=== PATIENT | male | born 1990 | race Caucasian/White ===

== ENCOUNTER 2018-11-12 19:29 | Inpatient (IN) | payer SELFPAY ==
[2018-11-12] MEDS ORDERED: Ketorolac Tromethamine 30 MG/ML VIAL ONE (20:23)
[2018-11-12] MEDS ORDERED: Ondansetron PF 4 MG/2 ML Vial IVP PRN (22:36)
[2018-11-12] MEDS ORDERED: Ondansetron ODT 4 MG TAB SL PRN (22:36)
[2018-11-12] MEDS ORDERED: Morphine 2 MG/ML SYRINGE SLOW IVP PRN (22:37)
[2018-11-12] MEDS: Lactated Ringer's 1,000 ML IV SCH (23:05)
[2018-11-12] MEDS: metroNIDAZOLE 500 MG in Premix Bag 1 BAG IVPB SCH (23:06)
[2018-11-12] MEDS: Acetaminophen 1,000 MG in Premix Bag 1 BAG IVPB PRN (23:15)
[2018-11-12] MEDS: Ketorolac Tromethamine 30 MG/ML VIAL IVP PRN (23:15)
[2018-11-12 23:40] VITALS: BMI 38.1
[2018-11-13] MEDS: metroNIDAZOLE 500 MG in Premix Bag 1 BAG IVPB SCH (06:10)
[2018-11-13] MEDS: Acetaminophen 1,000 MG in Premix Bag 1 BAG IVPB PRN ×2 (09:04→17:22)
[2018-11-13] MEDS: Ketorolac Tromethamine 30 MG/ML VIAL IVP PRN ×2 (09:04→17:22)
[2018-11-13] MEDS: Lactated Ringer's 1,000 ML IV SCH (09:20)
[2018-11-13] MEDS ORDERED: Morphine 2 MG/ML SYRINGE SLOW IVP PRN (09:46)
[2018-11-13] MEDS: D5 1/2 NS w/20 mEq KCL 1,000 ML IV SCH ×2 (10:49→17:25)
[2018-11-13] MEDS: Piperacillin/Tazobactam 3.375 GM in Sodium Chloride 0.9% 100 ML IVPB SCH ×2 (10:51→17:25)
--- NOTE | 2018-11-13 11:53 | HP ---
CHIEF COMPLAINT: Suprapubic and left lower quadrant abdominal pain. HISTORY OF PRESENT ILLNESS: This is a 28-year-old male with a 4-day history of lower abdominal pain, nausea, vomiting, and constipation. He has had a previous episode of this in June of 2017, treated with IV antibiotics. PAST MEDICAL HISTORY: Cardiomegaly, diverticulosis, hypothyroidism, and hypertension. PAST SURGICAL HISTORY: He had a colonoscopy at age 16 for rectal bleeding due to a fissure. He is supposed to take levothyroxine, but he had not been taken it. ALLERGIES: NO KNOWN DRUG ALLERGIES. SOCIAL HISTORY: He is single. 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 No tobacco since October 09. Occasional alcohol. FAMILY HISTORY: Paternal cardiac problems. Father had a heart attack at 36. PHYSICAL EXAMINATION: VITAL SIGNS: Temperature 98.4, pulse 87, and blood pressure 127/81. GENERAL: Obese male, awake, alert, does not appear to be in any distress. HEENT: Unremarkable. LUNGS: Clear. HEART: Regular rate and rhythm. ABDOMEN: Obese, soft, tender in the left lower quadrant and suprapubic area. LABORATORY DATA: His white count is 12.8, H and H 16 and 46, and platelet count 235. Electrolytes are fine. Urinalysis fine. CT scan shows diverticulitis with a 1 x 4 cm thin area of fluid surrounding this inflammatory mass. No air was seen around this. It was too small to be aspirated by CT directed. ASSESSMENT: Acute diverticulitis with possible early perforation. PLAN: Admit. IV fluids, bowel rest, and IV antibiotics. Job ID: [id number]
[2018-11-13] MEDS: Ondansetron PF 4 MG/2 ML Vial IVP PRN (16:13)
[2018-11-13] MEDS: Morphine 4 MG/ML VIAL SLOW IVP PRN (20:32)
[2018-11-14] MEDS: Piperacillin/Tazobactam 3.375 GM in Sodium Chloride 0.9% 100 ML IVPB SCH ×5 (00:12→23:14)
[2018-11-14] MEDS: D5 1/2 NS w/20 mEq KCL 1,000 ML IV SCH ×3 (04:19→12:54)
[2018-11-14] MEDS: Acetaminophen 1,000 MG in Premix Bag 1 BAG IVPB PRN ×2 (08:47→20:45)
[2018-11-14] MEDS: Ondansetron PF 4 MG/2 ML Vial IVP PRN ×3 (08:48→23:14)
[2018-11-14] MEDS: Ketorolac Tromethamine 30 MG/ML VIAL IVP PRN ×2 (08:48→20:19)
--- NOTE | 2018-11-14 08:50 | PRG ---
DATE OF SERVICE: 11/14/2018 SUBJECTIVE: The patient reports that his pain is 8, but it is better. He is passing flatus. No nausea or vomiting. He is very hungry. He is tolerating ice chips fine. OBJECTIVE: VITAL SIGNS: His temperature is 99, pulse 90, blood pressure 122/77. GENERAL: He looks good, in no apparent distress. ABDOMEN: Soft, obese. He still is moderately tender in the suprapubic area. ASSESSMENT: Stable. PLAN: Clear liquid diet. Continue IV antibiotics. Job ID: [id number]
[2018-11-14] MEDS: Morphine 4 MG/ML VIAL SLOW IVP PRN ×2 (17:19→23:14)
[2018-11-15] MEDS: D5 1/2 NS w/20 mEq KCL 1,000 ML IV SCH ×3 (03:30→17:55)
[2018-11-15 05:24] LABS: #Eosinphils 0.2 thou/uL (0.0-0.7); #Lymphocytes 1.5 thou/uL (1.20-3.40); #Monocytes 0.9 thou/uL (0.11-0.59); #Neutrophils 7.8 thou/uL (1.40-6.50); %Basophils 0.2 % (0.0-1.0); %Eosinophils 2.2 % (0.0-10.0); %Lymphocytes 14.1 % (21.0-51.0); %Monocytes 8.4 % (0.0-10.0); %Neutrophils 75.2 % (42.0-75.0); Hemoglobin 13.6 g/dL (14.0-18.0); Mean Corpuscular HGB CONC 32.9 g/dL (32.0-36.0); Mean Corpuscular Hemoglobin 30.4 pg (27.0-31.0); Mean Corpuscular Volume 92.5 fL (78.0-98.0); Mean Platelet Volume 7.7 fL (7.4-10.4); Platelet Count 232 thou/uL (130-400); RBC Distribution Width 11.7 % (11.5-14.5); Red Blood Cell (RBC) Count 4.47 mill/uL (4.70-6.10); White Blood Cell (WBC) Count 10.3 thou/uL (4.8-10.8)
[2018-11-15] MEDS: Ketorolac Tromethamine 30 MG/ML VIAL IVP PRN ×3 (05:41→18:28)
[2018-11-15] MEDS: Piperacillin/Tazobactam 3.375 GM in Sodium Chloride 0.9% 100 ML IVPB SCH ×3 (05:41→17:12)
[2018-11-15] MEDS: Acetaminophen 1,000 MG in Premix Bag 1 BAG IVPB PRN ×3 (05:41→18:29)
--- NOTE | 2018-11-15 08:38 | CT ---
CT Abdomen Pelvis W Con: 11/15/2018 7:40 AM CLINICAL INFORMATION: COMPARISON: None. TECHNIQUE: Multiple contiguous axial images were obtained and a CT of the abdomen and pelvis with IV contrast. C oronal reformats were performed. FINDINGS: Lower Chest: within normal limits. Abdomen: Liver: within normal limits. Bile Ducts: Normal caliber. Gallbladder: No calcified gallstones. Normal caliber wall. Pancreas: within normal limits. Spleen: within normal limits. Adrenals: within normal limits. Kidneys: within normal limits. Pelvis: Reproductive Organs: No pelvic masses. Ureters: within normal limits. Bladder: within normal limits. Peritoneum: No free fluid is seen. Bowel: Inflammatory changes seen adjacent to the sigmoid colon consistent with acute diverticulitis. There is a small amount of extraluminal air immediately adjacent to the sigmoid colon which appears contained in a region measuring 2.4 cm in greatest dimension. There is a small fluid collection adjac ent to the sigmoid colon measuring 3.3 cm in greatest dimension. Normal small bowel and appendix. Mesentery and Retroperitoneum: No enlarged mesenteric or retroperitoneal lymph nodes. Vessels: Normal. Abdominal Wall: within normal limits. Bones: Within normal limits IMPRESSION: Diverticulitis with small contained extraluminal collection of air and a separate small fluid collect ion likely representing an abscess. The small fluid collection is not amenable to percutaneous drainage as it is inaccessible secondary to the overlying bowel and adjacent iliac vasculature.
--- NOTE | 2018-11-15 08:55 | PRG ---
DATE OF SERVICE: 11/15/2018 SUBJECTIVE: The patient attempted to drink clear liquids, but felt extreme nausea, so went back to n.p.o. Says his pain is about 6/10. OBJECTIVE: VITAL SIGNS: Temperature is 99.2, pulse 81, blood pressure 160/91. ABDOMEN: Soft, nondistended. He is glory hole tender in the suprapubic area, but it is less. LABORATORY DATA: His white count is 10, H and H are 13 and 41 platelet count 232. ASSESSMENT: Persistent diverticulitis with abscess. PLAN: Repeat CT to assess abscess. Job ID: [id number]
[2018-11-15] MEDS: Ondansetron PF 4 MG/2 ML Vial IVP PRN ×2 (11:03→17:13)
[2018-11-15] MEDS: Morphine 4 MG/ML VIAL SLOW IVP PRN ×3 (11:04→20:54)
[2018-11-15] MEDS ORDERED: Iopamidol 370 76% 100 ML VIAL ONE (14:43)
[2018-11-15] MEDS ORDERED: Acetaminophen 1,000 MG in Premix Bag 1 BAG IVPB PRN (22:35)
[2018-11-16] MEDS: Piperacillin/Tazobactam 3.375 GM in Sodium Chloride 0.9% 100 ML IVPB SCH ×3 (00:54→13:56)
[2018-11-16] MEDS: D5 1/2 NS w/20 mEq KCL 1,000 ML IV SCH ×2 (00:59→10:33)
[2018-11-16] MEDS: Ondansetron PF 4 MG/2 ML Vial IVP PRN (01:22)
[2018-11-16] MEDS: Ketorolac Tromethamine 30 MG/ML VIAL IVP PRN (03:37)
--- NOTE | 2018-11-16 05:51 | PRG ---
DATE OF SERVICE: 11/16/2018 The patient reports that at about 7:30 p.m., he had a large bowel movement. During that bowel movement, he experienced severe pain that continued to progress throughout his abdomen. His temperature went up to 102, pulse is 90, blood pressure 140/80, they were having a very difficult time controlling his pain. His pain is now more diffuse across the abdomen. PHYSICAL EXAMINATION: VITAL SIGNS: Temperature 102, pulse 90, blood pressure 148/80. GENERAL: He is awake, alert, lying still. ABDOMEN: Diffusely tender with peritonitis. ASSESSMENT: Ruptured diverticulitis. PLAN: Exploratory laparotomy, sigmoid colectomy with some type of ostomy, either colostomy or ileostomy. Job ID: [id number]
[2018-11-16] MEDS ORDERED: Meropenem 2 GM in Admixture Fee 1 EACH IVPB SCH (06:00)
[2018-11-16] MEDS ORDERED: Fentanyl 100 MCG/2 ML VIAL ONE ×3 (06:04→09:40)
[2018-11-16] MEDS ORDERED: Albuterol Sulfate HFA (OR ONLY) ONE (06:24)
[2018-11-16] MEDS ORDERED: Midazolam HCl 2 mg/2 ml Vial ONE (06:58)
[2018-11-16] MEDS: Meropenem 2 GM, Admixture Fee 1 EACH in Sodium Chloride 0.9% 100 ML IVPB SCH ×3 (07:20→21:26)
[2018-11-16] MEDS ORDERED: HYDROmorphone 2 MG/ML VIAL ONE ×2 (08:39→09:40)
[2018-11-16] MEDS ORDERED: hydrALAZINE 20 MG/ML VIAL SLOW IVP PRN (09:16)
[2018-11-16] MEDS ORDERED: Ondansetron PF 4 MG/2 ML Vial IVP PRN ×2 (09:16→09:54)
[2018-11-16] MEDS ORDERED: Promethazine HCl 25 MG/ML VIAL IM PRN ×3 (09:16→09:54)
[2018-11-16] MEDS ORDERED: Promethazine HCl 25 MG/ML VIAL SLOW IVP PRN (09:29)
[2018-11-16] MEDS ORDERED: HYDROmorphone 2 MG/ML VIAL SLOW IVP PRN (09:29)
[2018-11-16] MEDS ORDERED: Ondansetron HCl/PF 4 MG/2 ML Vial IVP PRN (09:29)
[2018-11-16] MEDS ORDERED: PACU-Morphine 4MG/ML VIAL SLOW IVP PRN (09:29)
[2018-11-16] MEDS ORDERED: Sodium Chloride 0.9% 1,000 ML IV SCH (09:30)
[2018-11-16] MEDS ORDERED: Dexamethasone 4 mg/ml Vial ONE (09:36)
[2018-11-16] MEDS ORDERED: Naloxone HCl 0.4 mg/ml Vial IV PRN (09:54)
[2018-11-16] MEDS ORDERED: diphenhydrAMINE 50 MG/ML VIAL IM/IV PRN (09:54)
[2018-11-16] MEDS ORDERED: diphenhydrAMINE 25 MG CAP PO PRN (09:54)
[2018-11-16] MEDS ORDERED: Zolpidem Tartrate 5 MG TAB PO PRN (09:54)
--- NOTE | 2018-11-16 10:28 | RAD ---
Exam: Chest one view HISTORY:Central line placement Comparison: None FINDINGS: Lines and tubes: Right-sided jugular venous catheter with the distal tip projecting over the right at rium/superior vena cava junction Cardiac silhouette: Normal Aorta: Unremarkable Pulmonary vessels: Normal Costophrenic angles: Clear LUNGS: Diminished lung volumes, likely due to a poor inspiratory effort. Pneumothorax: None Osseous abnormalities: None IMPRESSION: 1. Right-sided jugular venous catheter as above. 2. No pneumothorax.
[2018-11-16] MEDS ORDERED: D5 1/2 NS w/20 mEq KCL 1,000 ML ONE (10:54)
[2018-11-16] MEDS ORDERED: Promethazine HCl 25 MG/ML VIAL ONE (11:05)
--- NOTE | 2018-11-16 12:20 | OP ---
DATE OF PROCEDURE: 11/16/2018 PREOPERATIVE DIAGNOSIS: Perforated appendicitis with pelvic abscess, peritonitis. PROCEDURES PERFORMED: Exploratory laparotomy, rigid proctoscopy, sigmoid colectomy, diverting ileostomy, and central line placement. INDICATIONS: This is a 28-year-old male, who was admitted 4 days ago with the second episode of diverticulitis. He had a small contained abscess that was not amenable to percutaneous drainage. He is being treated with antibiotics and seemed to be getting better until last night when he had sudden onset of severe pelvic pain, which migrated generalized throughout his abdomen after trying to have a bowel movement. He developed fever. FINDINGS: He had rupture with generalized peritonitis. He had this deep pelvic abscess right on the peritoneal reflection. It appeared as though the disease though was the loop of sigmoid colon, which was down in his pelvis. DESCRIPTION OF PROCEDURE: After informed consent was obtained, the patient was taken to the operating room and given general endotracheal anesthesia. He was placed in the supine position. His abdomen was prepped and draped in usual fashion. A low midline incision was performed. Subcu was divided sharply. The fascia was incised with a 10 blade. The fascia further opened sharply. Retraction was achieved with a Bookwalter retractor. There was purulent peritoneal fluid in the pelvis, which was cultured. He had inflammatory mass down in his pelvis and this was able to be brought up. There was residual inflammation on the rectum at the peritoneal reflection from this abscess cavity. So, I was trying to look for signs where the abscess came from, whether it was started in the sigmoid or it started just at the peritoneal reflection. I did a rigid proctoscope at this point, and we looked inside under direct vision to 25 cm, inflated this loop of air, which was compressed with a Vanessa clamp. There was no air leak or evidence of the type of perforation at the rectum. There was no mucosal inflammation suggesting this was the source of the perforation. For that reason, we elected to just remove the portion of the sigmoid colon that was all inflamed. Distally, it was divided in healthy colon tissue with the NETTIE, proximally was divided in healthy colon tissue with the NETTIE, and then the mesentery divided utilizing the LigaSure. A primary end-to-end hand-sewn anastomosis was performed with interrupted 3-0 Vicryl suture. The mesentery closed with interrupted [id number] of 3-0 Vicryl. Hemostasis was assured. The abdomen was thoroughly irrigated with saline. A drain was placed on the left side and placed into the deep pelvis, where the abscess cavity had been. Then, an ileostomy was created. A circular skin incision on the right side was performed. It was excised with electrocautery down to the fascia. The fascia was incised in a cruciate manner with a cautery. This was dilated with 4 fingers. The ileum was found and a loop that was found that would easily go through this. It was divided with the NETTIE and part of the mesentery, but both ends of the ileum were brought through the fascia to make closure easier. The proximal end was then sutured to the fascia with interrupted 3-0 Vicryl suture. Then, the abdominal wall was closed with a running looped #1 PDS with interrupted #1 Prolene [id number]. The subcu was thoroughly irrigated. Then, subcu was closed with interrupted 3-0 Vicryl and then skin francisco. A Prevena wound VAC system was inserted on the wound to remove fluid as he is morbidly obese. Then, the ileostomy was matured. The staple line excised and it was matured with interrupted 3-0 Vicryl sutures circumferentially. A wafer and then bag applied. Then, a central line was placed in his right internal jugular vein. The skin was then prepped with Hibiclens. The introducer needle inserted with good backflow of venous blood, J-wire threaded easily. The skin was incised with an 11 blade and the dilator was used. The pre-flushed triple-lumen catheter inserted over the wire. The wire was removed. Each of the ports aspirated, good backflow of venous blood and flushed with saline, sutured in place with interrupted 3-0 silk suture. Sterile bandage applied. The patient tolerated the procedure well, transferred to Recovery in good condition. Sponge and needle count verified correct x2. Job ID: [id number]
[2018-11-16] MEDS ORDERED: Bupivacaine HCl 0.5%/Epinephrine 1:200,000/PF 30 ml Vial ONE (12:43)
[2018-11-16] MEDS: Acetaminophen 1,000 MG in Premix Bag 1 BAG IVPB SCH ×3 (14:00→23:42)
[2018-11-16] MEDS ORDERED: Rocuronium Bromide 10 MG/ML (10ML VIAL) ONE (14:20)
[2018-11-16] MEDS ORDERED: Ketorolac Tromethamine 30 MG/ML VIAL ONE (14:20)
[2018-11-16] MEDS ORDERED: PROVENTIL INHALER 6.7 G (200 INHALATIONS) ONE (14:20)
[2018-11-16] MEDS ORDERED: Succinylcholine Chloride 20 MG/ML 10 ml SYRINGE FS ONE (14:20)
[2018-11-16] MEDS ORDERED: PROPOFOL 200 MG/20 ML VIAL ONE (14:20)
[2018-11-16] MEDS ORDERED: Glycopyrrolate 0.2 MG/ML 5 ML SYRINGE ONE (14:20)
[2018-11-16] MEDS ORDERED: PHENYLEPHRINE-NS 100 MCG/ML 10 ML SYRINGE ONE (14:20)
[2018-11-16] MEDS ORDERED: Ondansetron PF 4 MG/2 ML Vial ONE (14:20)
[2018-11-16] MEDS ORDERED: Lidocaine 1% PF 5 ML VIAL ONE (14:20)
[2018-11-16] MEDS ORDERED: Dexamethasone 20 MG/5 ML VIAL ONE (14:20)
[2018-11-16] MEDS: Sodium Chloride 0.9% 1,000 ML IV SCH ×2 (15:30→23:41)
[2018-11-16] MEDS: Ketorolac Tromethamine 30 MG/ML VIAL IVP SCH ×2 (17:48→23:41)
[2018-11-16 18:39] LABS: INR-International Normal Ratio 1.2; PTT 30.3 SEC (22.9-36.1); Prothrombin Time 14.8 SEC (12.0-14.7)
[2018-11-16 18:58] LABS: ALT (SGPT) 8 U/L (8-55); AST (SGOT) 15 U/L (5-34); Albumin 3.6 g/dL (3.5-5.0); Alkaline Phosphatase 64 U/L (40-150); Anion Gap 13 mmol/L (10-20); BUN (Urea Nitrogen) 5 mg/dL (8.9-20.6); Bilirubin, Total 0.5 mg/dL (0.2-1.2); Calc. Creatinine Clearance 237 mL/min (70-130); Calcium 9.3 mg/dL (7.8-10.44); Carbon Dioxide 24 mmol/L (22-29); Cardiac Risk 5.3 (Less than 4.5); Chloride 105 mmol/L (98-107); Cholesterol 142 mg/dl (< 200 Desired); Estimated GFR-MDRD Greater than 90; Glucose 121 mg/dL (70-105); HDL Cholesterol 27 mg/dL (>60 Neg Risk); LDL Cholesterol, Calculated 95 mg/dL; Magnesium 1.9 mg/dL (1.6-2.6); Phosphorus 2.9 mg/dL (2.3-4.7); Potassium 4.3 mmol/L (3.5-5.1); Protein, Total 6.6 g/dL (6.0-8.3); Sodium 138 mmol/L (136-145); Triglycerides 102 mg/dL (Less than 150)
[2018-11-16] MEDS: Famotidine/PF 20 mg/2ml Vial SLOW IVP SCH (21:13)
[2018-11-16] MEDS: Famotidine 20 MG TAB PO SCH (21:16)
[2018-11-16] MEDS ORDERED: Multivitamins, Adult 10 ML, Multitrace-5 5 ML, Fat Emulsion 250 ML in D15W-AA 5% with L... IV SCH (22:00)
[2018-11-17] MEDS: fentaNYL Citrate/PF 2,000 MCG in Sodium Chloride 0.9% 60 ML IV PRN ×2 (03:01→16:56)
[2018-11-17] MEDS: Acetaminophen 1,000 MG in Premix Bag 1 BAG IVPB SCH (05:24)
[2018-11-17] MEDS: Ketorolac Tromethamine 30 MG/ML VIAL IVP SCH ×4 (05:25→23:36)
[2018-11-17 05:41] LABS: #Lymphocytes 1.3 thou/uL (1.20-3.40); #Neutrophils 11.5 thou/uL (1.40-6.50); %Basophils 0.1 % (0.0-1.0); %Eosinophils 0.1 % (0.0-10.0); %Lymphocytes 9.4 % (21.0-51.0); %Neutrophils 83.3 % (42.0-75.0); Hemoglobin 12.7 g/dL (14.0-18.0); Mean Corpuscular HGB CONC 33.7 g/dL (32.0-36.0); Mean Corpuscular Hemoglobin 30.7 pg (27.0-31.0); Mean Corpuscular Volume 91.2 fL (78.0-98.0); Mean Platelet Volume 7.6 fL (7.4-10.4); Platelet Count 269 thou/uL (130-400); RBC Distribution Width 11.6 % (11.5-14.5); Red Blood Cell (RBC) Count 4.14 mill/uL (4.70-6.10); White Blood Cell (WBC) Count 13.8 thou/uL (4.8-10.8)
[2018-11-17 05:58] LABS: Anion Gap 12 mmol/L (10-20); BUN (Urea Nitrogen) 9 mg/dL (8.9-20.6); Calc. Creatinine Clearance 253 mL/min (70-130); Calcium 9.1 mg/dL (7.8-10.44); Carbon Dioxide 23 mmol/L (22-29); Chloride 107 mmol/L (98-107); Estimated GFR-MDRD Greater than 90; Glucose 96 mg/dL (70-105); Sodium 138 mmol/L (136-145)
[2018-11-17] MEDS: Meropenem 2 GM, Admixture Fee 1 EACH in Sodium Chloride 0.9% 100 ML IVPB SCH ×3 (06:49→21:53)
[2018-11-17] MEDS: Sodium Chloride 0.9% 1,000 ML IV SCH ×5 (06:55→23:02)
--- NOTE | 2018-11-17 07:02 | PDOC.GSPN ---
Surgery Progress Note: Subj - Subjective Narrative: Mr. Shultz is a 28 year old male who is day 1 s/p exploratory laparotomy with sigmoidectomy and diverting ileostomy due to peritonitis resulting from perforated diverticulitis and abscess formation. He is currently improving and reports pain 6/10, mainly localized to the LLQ, which he states as "tolerable". He has been ambulating last night and this morning and reports diffuse pain with activity. He denies nausea. There has been minimal output from his ileostomy, 30 mL of serosanguinous fluid from his BIRD drain, and 900 mL from his murrell. He is on TPN through a central line and is taking ice chips by mouth. Surgery Progress Note: Obj - Vital signs Vital signs: Vital Signs - Most Recent Temp Pulse Resp BP Pulse Ox 98.6 F 76 16 137/83 96 11/17/18 04:00 11/17/18 04:00 11/17/18 04:00 11/17/18 04:00 11/17/18 04:00 - Physical Exam General: no distress, moderate pain Cardiovascular: regular rate and rhythm, no murmur Respiratory: clear to auscultation Abdomen: soft, nondistended, decreased bowel sounds, appropriately tender Wound: wound vac (in place over midline incision, some blood on dressing over wound vac), ostomy/colostomy (minmal drainage in ostomy bag) Surgery Progress Note: Results - Labs Result Diagrams: 11/17/18 05:20 11/17/18 05:20 Lab results: Laboratory Results - last 24 hr 11/16/18 11/16/18 11/17/18 18:25 23:38 05:20 WBC RBC Hgb Hct MCV MCH MCHC RDW Plt Count MPV Neutrophils % Lymphocytes % Monocytes % Eosinophils % Basophils % Neutrophils # Lymphocytes # Monocytes # Eosinophils # Basophils # Sodium 138 138 Potassium 4.3 4.0 Chloride 105 107 Carbon Dioxide 24 23 Anion Gap 13 12 BUN 5 L 9 Creatinine 0.82 0.77 Estimated GFR (MDRD) Greater than 90 Greater than 90 Glucose 121 H 96 POC Glucose 121 H Calcium 9.3 9.1 Phosphorus 2.9 Magnesium 1.9 Total Bilirubin 0.5 AST 15 ALT 8 Alkaline Phosphatase 64 Serum Total Protein 6.6 Albumin 3.6 Globulin 3.0 Albumin/Globulin Ratio 1.2 Triglycerides 102 Cholesterol 142 LDL Cholesterol, Calc 95 HDL Cholesterol 27 Heart Disease Risk Ratio 5.3 11/17/18 11/17/18 05:20 05:35 WBC 13.8 H RBC 4.14 L Hgb 12.7 L Hct 37.7 L MCV 91.2 MCH 30.7 MCHC 33.7 RDW 11.6 Plt Count 269 MPV 7.6 Neutrophils % 83.3 H Lymphocytes % 9.4 L Monocytes % 7.0 Eosinophils % 0.1 Basophils % 0.1 Neutrophils # 11.5 H Lymphocytes # 1.3 Monocytes # 1.0 H Eosinophils # 0.0 Basophils # 0.0 Sodium Potassium Chloride Carbon Dioxide Anion Gap BUN Creatinine Estimated GFR (MDRD) Glucose POC Glucose 105 Calcium Phosphorus Magnesium Total Bilirubin AST ALT Alkaline Phosphatase Serum Total Protein Albumin Globulin Albumin/Globulin Ratio Triglycerides Cholesterol LDL Cholesterol, Calc HDL Cholesterol Heart Disease Risk Ratio Surgery Progress Note: A/P - Problem (1) Perforated diverticulum Current Visit: Yes Code(s): K57.80 - DVTRCLI OF INTEST, PART UNSP, W PERF AND ABSCESS W/O BLEED Status: Acute Assessment and Plan: Patient is recovering well postoperatively and is without signs of peritonitis at this time. His vitals and labs are stable. Will continue on meropenam for broad spectrum coverage and will follow up on results from peritoneal culture. 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 Patient to continue ambulating as tolerated and incentive spirometry to promote continued recovery. Will check CBC and BMP tomorrow morning to trend labs. Patient will continue on TPN for a couple of days in order to provide bowel rest. Will continue to monitor for postoperative complications.
--- NOTE | 2018-11-17 09:36 | PRG ---
DATE OF SERVICE: 11/17/2018 SUBJECTIVE: The patient reports his pain is better. It is about 6/10. No nausea or vomiting. He is tolerating some ice chips. OBJECTIVE: VITAL SIGNS: Temperature is 97, pulse 67, and blood pressure 127/84, he had 30 out the BIRD, urine output is 900. GENERAL: On examination, he is awake, alert, in no apparent distress. ABDOMEN: Soft, obese. The ostomy is viable, minimal out. No air. LABORATORY DATA: White count is 13.8, H and H are 12 and 37, and platelet count 269. Electrolytes are fine. ASSESSMENT: Doing well. PLAN: Discontinue Yadav. He can have ice chips. Job ID: [id number]
[2018-11-17] MEDS: Famotidine/PF 20 mg/2ml Vial SLOW IVP SCH ×2 (10:01→21:39)
[2018-11-17] MEDS: Famotidine 20 MG TAB PO SCH ×2 (10:01→21:40)
[2018-11-17] MEDS: Enoxaparin Sodium 40 MG/0.4 ML SYRINGE SC SCH (11:14)
[2018-11-17] MEDS: Sodium Acetate 2 mEq/ml 40 MEQ, Sodium Chloride 30 MEQ, Potassium Chloride 20 MEQ, Pota... IV SCH (22:38)
[2018-11-18] MEDS: Ketorolac Tromethamine 30 MG/ML VIAL IVP SCH ×3 (05:36→17:05)
[2018-11-18] MEDS: Meropenem 2 GM, Admixture Fee 1 EACH in Sodium Chloride 0.9% 100 ML IVPB SCH ×3 (05:37→23:14)
[2018-11-18] MEDS: Sodium Chloride 0.9% 1,000 ML IV SCH ×3 (05:56→23:20)
[2018-11-18] MEDS: Enoxaparin Sodium 40 MG/0.4 ML SYRINGE SC SCH (08:26)
[2018-11-18] MEDS: Famotidine/PF 20 mg/2ml Vial SLOW IVP SCH ×2 (08:27→20:34)
[2018-11-18] MEDS: Famotidine 20 MG TAB PO SCH ×2 (08:27→20:28)
[2018-11-18 08:42] LABS: Anion Gap 10 mmol/L (10-20); BUN (Urea Nitrogen) 11 mg/dL (8.9-20.6); Calc. Creatinine Clearance 286 mL/min (70-130); Calcium 8.4 mg/dL (7.8-10.44); Carbon Dioxide 27 mmol/L (22-29); Chloride 105 mmol/L (98-107); Estimated GFR-MDRD Greater than 90; Glucose 106 mg/dL (70-105); Potassium 3.5 mmol/L (3.5-5.1); Sodium 138 mmol/L (136-145)
[2018-11-18 08:53] LABS: Phosphorus 1.6 mg/dL (2.3-4.7)
[2018-11-18] MEDS ORDERED: Potassium Phosphate 15 MMOL in Sodium Chloride 0.9% 250 ML 250 ML IVPB PRN (10:56)
[2018-11-18] MEDS ORDERED: Potassium Phosphate 12 MMOL in Sodium Chloride 0.9% 100 ML IVPB PRN (10:56)
[2018-11-18] MEDS ORDERED: Potassium Phosphate 9 MMOL in Sodium Chloride 0.9% 100 ML IVPB PRN (10:56)
[2018-11-18] MEDS ORDERED: PHOS-NAK 1 PKT PACK PO PRN ×2 (10:56)
--- NOTE | 2018-11-18 11:47 | PRG ---
DATE OF SERVICE: 11/18/2018 SUBJECTIVE: The patient is feeling a little bit better. He still having some moderate pain about 6. He denies any nausea or vomiting. His ileostomy is starting to put out some gas as well as fluid. OBJECTIVE: VITAL SIGNS: Temperature 98, pulse 89, blood pressure 130/76. He looks good. Prevena wound system is still intact. He is voiding well. ASSESSMENT: Doing well. PLAN: Clear liquid diet. Ambulate. Job ID: [id number]
[2018-11-18] MEDS: fentaNYL Citrate/PF 2,000 MCG in Sodium Chloride 0.9% 60 ML IV PRN (11:52)
--- NOTE | 2018-11-18 17:41 | RAD ---
PORTABLE CHEST: HISTORY: Chest tightness. COMPARISON: 11/16/2018 FINDINGS: A central line remains in place, overlying the SVC. There is evidence of a new patchy infiltrate in the right lung base today, when compared to prior werner dy. The left lung appears clear and unchanged. The vasculature is normal. IMPRESSION: Question new right lower lobe infiltrate. Suggest further evaluation with upright posterior-anterior and lateral views of the chest, if possible. POS: [facility]
[2018-11-18] MEDS: Vancomycin HCl 1.75 GM in Sodium Chloride 0.9% 500 ML IVPB SCH (20:27)
[2018-11-18] MEDS ORDERED: Vancomycin HCl 1 GM in Premix Bag 1 BAG IVPB SCH (21:00)
[2018-11-18] MEDS: Sodium Acetate 2 mEq/ml 40 MEQ, Sodium Chloride 30 MEQ, Potassium Chloride 20 MEQ, Pota... IV SCH (22:27)
[2018-11-19] MEDS: Piperacillin/Tazobactam 3.375 GM in Sodium Chloride 0.9% 100 ML IVPB SCH ×3 (00:02→11:27)
--- NOTE | 2018-11-19 03:15 | HP ---
PRIMARY CARE PHYSICIAN: Dr. Marshall. REASON FOR ADMISSION: Ruptured diverticular abscess. REASON FOR CONSULTATION: Concern for possible pneumonia. HISTORY OF PRESENT ILLNESS: Mr. Shultz is a very pleasant 28-year-old gentleman, who has a history of hypertension and hypothyroidism. He says he had not been taking medications due to loss of insurance. However, recently, he started having severe abdominal pain and he came to the emergency room for evaluation. In the ER, a CT scan of the abdomen was done, which showed findings suspicious for diverticulitis with small abscess or fluid collection in the sigmoid colon. He was admitted by the Surgery Service and started on IV antibiotics. During the course of the admission, he underwent an exploratory lap with proctoscopy and sigmoid colectomy with a diverting ileostomy. This was done two days ago on November 16. He noticed yesterday that he was having a bit of cough and slight shortness of breath and then today, he was told to do some walking and to try to do at least four laps a day. He said he was on his third lab today when he started having tightness in his chest and noticed some shortness of breath. For this reason, they got an EKG which was essentially normal, and this was reviewed by myself and was also normal and a chest x-ray which showed possible infiltrate in the right base and for this reason, we were consulted. The patient says he has not had any vomiting yesterday. He was on ice chips only and today, he was advanced to clear liquids. He said the last time he threw up was on Wednesday, which was some greenish bile. He denies any fevers or chills, but does admit to feeling hot now. He also says the chest tightness has got better and he feels like the congestion has also gone in his chest. REVIEW OF SYSTEMS: All systems were reviewed and are negative except for that mentioned in the history of present illness. PAST MEDICAL HISTORY: Significant for hypertension, hypothyroidism, and cardiomegaly. PAST SURGICAL HISTORY: He has had a colonoscopy at age 16 due to rectal bleeding. They were concerned about Crohn disease, but was found to have rectal fissure. ALLERGIES: NO KNOWN DRUG ALLERGIES. SOCIAL HISTORY: He is single. He drinks about 2 drinks every now and then, but does admit to binge drinking periodically. He also is a former smoker. He says he quit on October 09 at 11:59 p.m. Prior to that, he smoked about 1-1/2 packs of cigarettes a day. FAMILY HISTORY: Significant for cardiac issues, but otherwise he does not really know due to adoption. MEDICATIONS: 1. Omeprazole. 2. Metoprolol 100. 3. Levothyroxine, he is not sure. He says he has not taken these for some time due to insurance issues. PHYSICAL EXAMINATION: GENERAL: He is alert and oriented. He appears to be in no acute distress. VITAL SIGNS: His blood pressure was 149/87, heart rate 81, respiratory rate of 20, temperature was 99.2, and O2 sats 99% on room air. HEENT: Pupils are equal, round, and reactive to light. Extraocular muscles are intact. His sclerae anicteric. Throat, there is no erythema, no exudates. NECK: No adenopathy. No bruits. LUNGS: They are essentially clear to auscultation. There is no wheezing, no rales, no rhonchi. CARDIOVASCULAR: He had a normal S1 and S2. I did not appreciate an S3 or S4. No murmurs, clicks, or rubs. ABDOMEN: Obese. It is soft, nontender, and nondistended. Positive for bowel sounds. There is no rebound or guarding on his extremities. There is no clubbing or cyanosis. He did have some trace edema. No joint effusions. NEUROLOGIC: His cranial nerves 2 through 12 are intact and his muscle strength is 5/5 in both his upper and lower extremities. SKIN AND INTEGUMENT: There is no skin changes, no rash. LABORATORY DATA: White blood cell count was 13.8, hemoglobin 12.7, hematocrit is 37.7, and platelet count is 289. INR is 1.2. Sodium 138, potassium 3.5, chloride is 105, CO2 is 27, BUN of 11, creatinine 0.68, glucose is 102, phosphorus 1.6, glucose is 100. On his x-ray, did have some mild cardiomegaly and some increase in the pulmonary vascular markings in the right base. ASSESSMENT: 1. This is a pleasant 28-year-old gentleman, who was admitted for diverticular abscess which has perforated. He has undergone exploratory laparotomy. He now has some chest tightness as well as cough and radiographic evidence for infiltrate, as well as an elevated white blood cell count. Since he has been in the hospital, this would likely be considered a hospital-acquired pneumonia. We will go ahead and start him on broad-spectrum IV antibiotics, which I anticipate can quickly be de-escalated given that he looks relatively nontoxic. However, we will go ahead and start him on IV vancomycin and Zosyn in the event that this was an aspiration event earlier on. Once he is able to take more solid foods, these can likely be transitioned to an oral antibiotic if he continues to do well. 2. Hypertension. Blood pressure appears to be fairly well controlled. We will continue with p.r.n. medications for now as hydralazine has already been ordered. 3. Hypothyroidism. We will check thyroid function test with his morning labs and if he requires replacement, we will go ahead and reinstitute this. We will be happy to follow along with you. Job ID: [id number]
[2018-11-19] MEDS: Meropenem 2 GM, Admixture Fee 1 EACH in Sodium Chloride 0.9% 100 ML IVPB SCH ×3 (05:50→22:57)
[2018-11-19] MEDS: Vancomycin HCl 1.75 GM in Sodium Chloride 0.9% 500 ML IVPB SCH (06:24)
[2018-11-19 06:40] LABS: Free T4 (Free Thyroxine) 1.08 ng/dL (0.70-1.48); Thyroid Stimulating Hormone 4.2998 uIU/mL (0.35-4.94)
[2018-11-19] MEDS: Sodium Chloride 0.9% 1,000 ML IV SCH ×3 (06:42→22:57)
[2018-11-19 08:18] LABS: #Basophils 0.1 thou/uL (0.0-0.2); #Eosinphils 0.2 thou/uL (0.0-0.7); #Lymphocytes 1.5 thou/uL (1.20-3.40); #Monocytes 0.6 thou/uL (0.11-0.59); %Basophils 0.8 % (0.0-1.0); %Eosinophils 3.1 % (0.0-10.0); %Lymphocytes 19.8 % (21.0-51.0); %Monocytes 8.1 % (0.0-10.0); %Neutrophils 68.3 % (42.0-75.0); Hemoglobin 13.5 g/dL (14.0-18.0); Mean Corpuscular HGB CONC 34.5 g/dL (32.0-36.0); Mean Corpuscular Hemoglobin 31.4 pg (27.0-31.0); Mean Corpuscular Volume 90.9 fL (78.0-98.0); Mean Platelet Volume 6.9 fL (7.4-10.4); Platelet Count 274 thou/uL (130-400); RBC Distribution Width 11.6 % (11.5-14.5); White Blood Cell (WBC) Count 7.3 thou/uL (4.8-10.8)
[2018-11-19 08:38] LABS: Anion Gap 13 mmol/L (10-20); BUN (Urea Nitrogen) 13 mg/dL (8.9-20.6); Calc. Creatinine Clearance 282 mL/min (70-130); Calcium 9.3 mg/dL (7.8-10.44); Carbon Dioxide 25 mmol/L (22-29); Chloride 103 mmol/L (98-107); Estimated GFR-MDRD Greater than 90; Glucose 105 mg/dL (70-105); Potassium 3.5 mmol/L (3.5-5.1); Sodium 137 mmol/L (136-145)
[2018-11-19] MEDS: Enoxaparin Sodium 40 MG/0.4 ML SYRINGE SC SCH (09:49)
[2018-11-19] MEDS: Famotidine 20 MG TAB PO SCH ×2 (09:50→20:26)
[2018-11-19] MEDS: Famotidine/PF 20 mg/2ml Vial SLOW IVP SCH ×2 (09:50→20:25)
--- NOTE | 2018-11-19 11:00 | PDOC.GSPN ---
Surgery Progress Note: Subj - Subjective Narrative: Mr. Shultz is a 28 year old male who is day 3 s/p ex lap, sigmoidectomy, and diverting ileostomy. He is not experiencing any shortness of breath or cough this morning. He denies nausea and vomiting. He states that his pain is currently an 8, however he just finished walking, which he states exacerbated the pain. He's had 600 mL output from his ileostomy, adequate urine output, and 80 mL serosanguinous fluid from his BIRD drain. He is currently on TPN and clear liquids, which he is tolerating well. Surgery Progress Note: Obj - Vital signs Vital signs: Vital Signs - Most Recent Temp Pulse Resp BP Pulse Ox 98.5 F 84 18 157/97 H 95 11/19/18 07:30 11/19/18 07:30 11/19/18 07:30 11/19/18 07:30 11/19/18 07:55 - Physical Exam General: no distress, moderate pain Cardiovascular: regular rate and rhythm, no murmur Respiratory: clear to auscultation (No wheezes, rales, rubs, or rhonchi.) Abdomen: soft, nondistended, positive bowel sounds, appropriately tender Wound: wound vac (over midline incision with some blood on dressing), ostomy/ colostomy (air and stool output from ileostomy) Surgery Progress Note: Results - Labs Result Diagrams: 11/19/18 08:12 11/19/18 08:12 Lab results: Laboratory Results - last 24 hr 11/19/18 11/19/18 08:12 08:12 WBC 7.3 RBC 4.30 L Hgb 13.5 L Hct 39.1 L MCV 90.9 MCH 31.4 H MCHC 34.5 RDW 11.6 Plt Count 274 MPV 6.9 L Neutrophils % 68.3 Lymphocytes % 19.8 L Monocytes % 8.1 Eosinophils % 3.1 Basophils % 0.8 Neutrophils # 5.0 Lymphocytes # 1.5 Monocytes # 0.6 H Eosinophils # 0.2 Basophils # 0.1 Sodium 137 Potassium 3.5 Chloride 103 Carbon Dioxide 25 Anion Gap 13 BUN 13 Creatinine 0.69 L Estimated GFR (MDRD) Greater than 90 Glucose 105 POC Glucose Calcium 9.3 Free T4 TSH 3rd Generation Surgery Progress Note: A/P - Problem (1) Perforated diverticulum Current Visit: Yes Code(s): K57.80 - DVTRCLI OF INTEST, PART UNSP, W PERF AND ABSCESS W/O BLEED Status: Acute Assessment and Plan: Mr. Shultz is currently doing well. His WBC is trending down, H&H are stable. Preliminary peritoneal cultures showed no growth, will continue on meropenam for broad spectrum coverage. Hospitalists started him on zosyn and vanc for hospital acquired pneumonia yesterday. Will continue on fentanyl for pain and consider transitioning to oral norco. Plan to advance diet as tolerated by patient and d/c TPN when appropriate. Patient to continue ambulating multiple times daily and use incentive spirometry hourly. Addendum - Physician - Physician Attestation Date/Time: 11/19/18 0192 I personally performed or re-performed the physical examination and medical decision making. I have verified all student documentation or findings, including history, physical exam and/or medical decision making. I discussed with the Hospitalist Service regarding antibiotics. Recommendation changing antibiotics to Fluoroquinolone and metronidazole which could be transitioned to oral form once tolerating PO.
[2018-11-19] MEDS: metroNIDAZOLE 500 MG in Premix Bag 1 BAG IVPB SCH ×2 (12:23→20:24)
[2018-11-19] MEDS: fentaNYL Citrate/PF 2,000 MCG in Sodium Chloride 0.9% 60 ML IV PRN (13:22)
--- NOTE | 2018-11-19 18:26 | PDOC.HOSPP ---
- Subjective Encounter Date: 11/19/18 Encounter Time: 13:00 Subjective: Mr. Shultz was seen today in follow-up of probable pneumonia, and medical management post ruptured Diverticulitis. He denies any trouble with breathing and was able to walk 9 laps around the floor. - Objective Vital Signs & Weight: Vital Signs (12 hours) Temp Pulse Resp BP BP Pulse Ox 11/19/18 16:10 98.3 F 68 16 165/99 H 98 11/19/18 12:32 61 18 147/87 H 11/19/18 11:50 98.3 F 74 14 169/98 H 99 11/19/18 07:55 95 11/19/18 07:30 98.5 F 84 18 157/97 H 95 11/19/18 06:31 97 Weight Admit Weight 273 lb 5 oz Weight 273 lb 5 oz I&O: 11/18/18 11/19/18 11/20/18 06:59 06:59 06:59 Intake Total 5382 3842 50 Output Total 3171 3162 2617 Balance 9742 -0829 -2660 Result Diagrams: 11/19/18 08:12 11/19/18 08:12 Additional Labs: Accuchecks 11/19/18 11/19/18 11/19/18 11:46 05:56 00:02 POC Glucose 90 92 100 ROS - Medication Medications: Active Medications Generic Name Dose Route Start Last Admin Trade Name Freq PRN Reason Stop Dose Admin Enoxaparin Sodium 40 mg 11/17/18 09:00 11/19/18 09:49 Lovenox SC 40 mg 0900 DION Administration Famotidine 20 mg 11/16/18 21:00 11/19/18 09:50 Pepcid PO Not Given Q12HR DION Famotidine 20 mg 11/16/18 21:00 11/19/18 09:50 Pepcid SLOW IVP 20 mg Q12HR DION Administration Meropenem 2 gm/ Miscellaneous 100 mls @ 0 mls/hr 11/16/18 06:00 11/19/18 13: 24 Medication 1 each/ Sodium IVPB 100 mls Chloride Q8HR DION Administration Fentanyl Citrate 2,000 mcg/ 100 mls @ 0 mls/hr 11/16/18 09:54 11/19/18 13:22 Sodium Chloride IV 100 mls INF PRN Administration Pain As Directed Sodium Chloride 1,000 mls @ 125 mls/hr 11/16/18 15:00 11/19/18 14:43 Normal Saline 0.9% IV Not Given .Q8H DION Sodium Acetate 40 meq/ Sodium 3,022.3159 mls @ 125.93 mls/hr 11/17/18 22:00 11/18/18 22:27 Chloride 30 meq/ Potassium IV 3,022.3159 mls Chloride 20 meq/ Potassium 2200 DION Administration Phosphate 30 mmol/ Calcium Chloride 10 meq/ Magnesium Sulfate 10 meq/ Multivitamins 10 ml/ Chromium/Copper/ Manganese/Seleni/Zn 5 ml/ Fat Emulsion Intravenous 250 ml/ Dextrose/Water/ Sterile Water/ Amino Acids Metronidazole 500 mg/ Device 100 mls @ 100 mls/hr 11/19/18 12:00 11/19/18 12: 23 IVPB 100 mls 0400,1200,2000 DION Administration - Exam Eye: PERRL, anicteric sclera Heart: RRR, no murmur, no gallops, no rubs, normal peripheral pulses Respiratory: CTAB, no wheezes, no rales, normal chest expansion, rhonchi (+ faint rhonchi right base, good air movement) Gastrointestinal: soft, non-distended, no palpable masses, no hepatomegaly, no splenomegaly, diminished bowl sounds (+ mild diffuse tenderness) Extremities: no cyanosis, no edema Hosp A/P (1) Hospital-acquired pneumonia Code(s): J18.9 - PNEUMONIA, UNSPECIFIED ORGANISM; Y95 - NOSOCOMIAL CONDITION Status: Acute (2) Hypothyroidism Code(s): E03.9 - HYPOTHYROIDISM, UNSPECIFIED Status: Chronic (3) Hypertension Code(s): I10 - ESSENTIAL (PRIMARY) HYPERTENSION Status: Chronic (4) Perforated diverticulum Code(s): K57.80 - DVTRCLI OF INTEST, PART UNSP, W PERF AND ABSCESS W/O BLEED Status: Acute - Plan * Hospital acquired Pneumonia- He is much improved- WBC count is better, no fever, discussed with Dr. Trujillo- will de-escalate his antibiotics- Cipro should be adequate coverage for pneumonia * HTN- continue PRN medications for now, once his diet is advanced, can consider starting a hypertensive agent * Hypothyroidism- he is currently euthyroid- will hold off starting any oral agent at this time
[2018-11-19] MEDS: Sodium Acetate 2 mEq/ml 40 MEQ, Sodium Chloride 30 MEQ, Potassium Chloride 20 MEQ, Pota... IV SCH (22:57)
--- NOTE | 2018-11-20 00:25 | PRG ---
DATE OF SERVICE: 11/20/2018 SUBJECTIVE: The patient is currently on the surgical floor. He is status post ileostomy on 11/16. Today, he was started on clear liquid diet, which he states he is tolerating. He feels that he is passing a small amount of flatus, but denies nausea, or vomiting. The patient is also currently on TPN. OBJECTIVE: VITAL SIGNS: Stable. The patient is afebrile. GENERAL: The patient is resting comfortably in bed. He is awake, alert, appropriate, conversant. LUNGS: Clear to auscultation bilaterally. HEART: Regular rate and rhythm. ABDOMEN: Minimally tender. Ostomy bag has air and liquid stool. Positive bowel sounds. ASSESSMENT AND PLAN: Status post ileostomy. Plan will be to continue supportive care. Encourage ambulation and advance the diet as tolerated. Job ID: [id number]
[2018-11-20] MEDS: fentaNYL Citrate/PF 2,000 MCG in Sodium Chloride 0.9% 60 ML IV PRN (01:10)
[2018-11-20] MEDS: metroNIDAZOLE 500 MG in Premix Bag 1 BAG IVPB SCH ×3 (04:42→20:49)
[2018-11-20] MEDS: Meropenem 2 GM, Admixture Fee 1 EACH in Sodium Chloride 0.9% 100 ML IVPB SCH ×3 (05:41→22:25)
[2018-11-20] MEDS: Sodium Chloride 0.9% 1,000 ML IV SCH ×2 (05:45→15:35)
[2018-11-20] MEDS: Famotidine 20 MG TAB PO SCH (09:26)
[2018-11-20] MEDS: Famotidine/PF 20 mg/2ml Vial SLOW IVP SCH (09:27)
--- NOTE | 2018-11-20 11:53 | PDOC.HOSPP ---
- Subjective Subjective: Patient seen and examined. Patient is diaphoretic, though he states he has walked 7 laps already this AM. Having liquid output from ostomy. BIRD drain with output. Patient does endorse worsening indigestion/ acid reflux despite Pepcid. Tolerating Clear liquid diet, advance to full liquid diet as tolerated per surgery. - Objective Vital Signs & Weight: Vital Signs (12 hours) Temp Pulse Resp BP BP Pulse Ox 11/20/18 08:00 97 11/20/18 07:24 98.4 F 75 14 138/85 97 11/20/18 04:00 98.9 F 71 18 155/90 H 97 11/20/18 00:23 98.6 F 74 16 162/108 H 100 Weight Admit Weight 273 lb 5 oz Weight 273 lb 5 oz I&O: 11/19/18 11/20/18 11/21/18 06:59 06:59 06:59 Intake Total 3842 1430 2452 Output Total 5330 2630 2400 Balance -1488 -1200 52 Result Diagrams: 11/19/18 08:12 11/19/18 08:12 Additional Labs: Accuchecks 11/20/18 11/19/18 11/19/18 06:32 19:54 18:15 POC Glucose 105 110 89 11/19/18 11:46 POC Glucose 90 ROS - Medication Medications: Active Medications Generic Name Dose Route Start Last Admin Trade Name Freq PRN Reason Stop Dose Admin Enoxaparin Sodium 40 mg 11/17/18 09:00 11/19/18 09:49 Lovenox SC 40 mg 0900 DION Administration Famotidine 20 mg 11/16/18 21:00 11/20/18 09:26 Pepcid PO 20 mg Q12HR DION Administration Famotidine 20 mg 11/16/18 21:00 11/20/18 09:27 Pepcid SLOW IVP Not Given Q12HR DION Meropenem 2 gm/ Miscellaneous 100 mls @ 0 mls/hr 11/16/18 06:00 11/20/18 05: 41 Medication 1 each/ Sodium IVPB 100 mls Chloride Q8HR DION Administration Fentanyl Citrate 2,000 mcg/ 100 mls @ 0 mls/hr 11/16/18 09:54 11/20/18 01:10 Sodium Chloride IV 100 mls INF PRN Administration Pain As Directed Sodium Chloride 1,000 mls @ 125 mls/hr 11/16/18 15:00 11/20/18 05:45 Normal Saline 0.9% IV Not Given .Q8H DION Sodium Acetate 40 meq/ Sodium 3,022.3159 mls @ 125.93 mls/hr 11/17/18 22:00 11/19/18 22:57 Chloride 30 meq/ Potassium IV 3,022.3159 mls Chloride 20 meq/ Potassium 2200 DION Administration Phosphate 30 mmol/ Calcium Chloride 10 meq/ Magnesium Sulfate 10 meq/ Multivitamins 10 ml/ Chromium/Copper/ Manganese/Seleni/Zn 5 ml/ Fat Emulsion Intravenous 250 ml/ Dextrose/Water/ Sterile Water/ Amino Acids Ciprofloxacin/Dextrose 400 mg/ 200 mls @ 200 mls/hr 11/19/18 21:00 11/20/18 09:27 Device IVPB 200 mls Q12HR DION Administration Metronidazole 500 mg/ Device 100 mls @ 100 mls/hr 11/19/18 12:00 11/20/18 04: 42 IVPB 100 mls 0400,1200,2000 DION Administration - Exam ill appearing General - other findings: Diaphoretic despite the cold room Eye: PERRL, anicteric sclera ENT: moist mucosa Neck: supple, no lymphadenopathy Heart: RRR, no murmur, no gallops, no rubs Respiratory: CTAB, no wheezes, no rales, no ronchi, normal chest expansion Gastrointestinal: soft, non-tender, non-distended, normal bowel sounds Gastrointestinal - other findings: Ostomy with liquid output. BIRD drain with output. Extremities: no edema Skin: no lesions, no rashes Neurological: CN's grossly intact, normal sensation to touch, no weakness, no focal deficits Musculoskeletal: normal tone, normal strength Psychiatric: normal affect, normal behavior, A&O x 3 Hosp A/P (1) Hospital-acquired pneumonia Code(s): J18.9 - PNEUMONIA, UNSPECIFIED ORGANISM; Y95 - NOSOCOMIAL CONDITION Status: Acute (2) Perforated diverticulum Code(s): K57.80 - DVTRCLI OF INTEST, PART UNSP, W PERF AND ABSCESS W/O BLEED Status: Acute (3) Hypertension Code(s): I10 - ESSENTIAL (PRIMARY) HYPERTENSION Status: Chronic (4) Hypothyroidism Code(s): E03.9 - HYPOTHYROIDISM, UNSPECIFIED Status: Chronic - Plan old records reviewed/req Plan: Surgery following, recommendations appreciated Advancing diet per surgery, as katherin Having output from ostomy D/c TPN if tolerating full liquid diet BIRD drain with output Add AM labs Continue current ABX Doing well with incentive spirometry, Q1 hour while awake Add protonix, does not seem to be controlled on Pepcid, consider D/c Doing well with regard to his physical strength, walking several laps around the unit daily DVT PPX
[2018-11-20] MEDS ORDERED: Cyclobenzaprine 10 MG TAB PO PRN (11:58)
[2018-11-20] MEDS: Enoxaparin Sodium 40 MG/0.4 ML SYRINGE SC SCH (12:08)
[2018-11-20] MEDS: traMADol HCl 50 MG TAB PO SCH ×3 (12:10→23:02)
[2018-11-20] MEDS: Ibuprofen 600 MG TAB PO SCH ×3 (12:11→23:01)
[2018-11-20] MEDS: Acetaminophen 500 MG TAB PO SCH ×3 (12:11→23:01)
[2018-11-20 13:01] LABS: #Eosinphils 0.4 thou/uL (0.0-0.7); #Lymphocytes 1.5 thou/uL (1.20-3.40); #Monocytes 0.5 thou/uL (0.11-0.59); #Neutrophils 4.8 thou/uL (1.40-6.50); %Basophils 0.5 % (0.0-1.0); %Monocytes 6.9 % (0.0-10.0); %Neutrophils 66.6 % (42.0-75.0); Hemoglobin 13.4 g/dL (14.0-18.0); Mean Corpuscular Hemoglobin 30.9 pg (27.0-31.0); Mean Corpuscular Volume 90.9 fL (78.0-98.0); Mean Platelet Volume 6.9 fL (7.4-10.4); Platelet Count 267 thou/uL (130-400); RBC Distribution Width 11.6 % (11.5-14.5); Red Blood Cell (RBC) Count 4.34 mill/uL (4.70-6.10); White Blood Cell (WBC) Count 7.1 thou/uL (4.8-10.8)
[2018-11-20 13:18] LABS: Anion Gap 9 mmol/L (10-20); BUN (Urea Nitrogen) 19 mg/dL (8.9-20.6); Calc. Creatinine Clearance 290 mL/min (70-130); Calcium 9.7 mg/dL (7.8-10.44); Carbon Dioxide 31 mmol/L (22-29); Chloride 99 mmol/L (98-107); Estimated GFR-MDRD Greater than 90; Glucose 95 mg/dL (70-105); Potassium 4.3 mmol/L (3.5-5.1); Sodium 135 mmol/L (136-145)
--- NOTE | 2018-11-20 15:40 | PDOC.GSPN ---
Surgery Progress Note: Subj - Subjective Narrative: Mr. Shultz is a 28 year old male who is day 4 s/p exploratory laparotomy with sigmoidectomy and diverting ileostomy. He is currently in pain, but states that he had just returned from walking and has walked 11 laps so far today. He is tolerating clear liquids and denies nausea. He has good urine output and has had 300 mL output from his ileostomy. Surgery Progress Note: Obj - Vital signs Vital signs: Vital Signs - Most Recent Temp Pulse Resp BP Pulse Ox 98.0 F 70 16 152/87 H 96 11/20/18 11:53 11/20/18 11:53 11/20/18 11:53 11/20/18 11:53 11/20/18 11:53 - Physical Exam General: no distress, moderate pain Cardiovascular: regular rate and rhythm, no murmur Respiratory: clear to auscultation Abdomen: soft, nondistended, appropriately tender Wound: ostomy/colostomy (viable ileostomy with good stool output) Surgery Progress Note: Results - Labs Result Diagrams: 11/20/18 12:51 11/20/18 12:51 Surgery Progress Note: A/P - Problem (1) Perforated diverticulum Current Visit: Yes Code(s): K57.80 - DVTRCLI OF INTEST, PART UNSP, W PERF AND ABSCESS W/O BLEED Status: Acute Assessment and Plan: Patient is day 4 s/p exploratory laparotomy with sigmoidectomy and diverting ileostomy. He is recovering well and is without post-operative complications. Plan: 1. Advance to full diet and d/c TPN once patient is tolerating advanced diet. 2. Switch patient to oral tramadol and d/c PERFUMER. 3. Continue ambulating. This patient was seen by myself and Dr. Trujillo together and this plan was discussed with Dr. Trujillo.
[2018-11-20] MEDS: Gabapentin 100 MG CAP PO SCH (20:50)
[2018-11-20] MEDS: Sodium Acetate 2 mEq/ml 40 MEQ, Sodium Chloride 30 MEQ, Potassium Chloride 20 MEQ, Pota... IV SCH (22:26)
--- NOTE | 2018-11-21 01:07 | PRG ---
DATE OF SERVICE: 11/21/2018 SUBJECTIVE: The patient remains on the surgical floor. He is status post ileostomy. He is postop day 4 from this. The patient reports that he has ambulated multiple times today. He is tolerating full liquids. His pain is controlled. He has no complaints at this time. OBJECTIVE: VITAL SIGNS: Stable. The patient is afebrile. GENERAL: The patient is resting comfortably in bed. He is awake, alert, and appropriate. LUNGS: Clear to auscultation bilaterally. Good inspiratory and expiratory effort. HEART: Regular rate and rhythm. ABDOMEN: Soft. There is minimal tenderness without peritoneal signs. The ostomy has a fair amount of air and liquid stool this evening. The patient has positive bowel sounds. ASSESSMENT AND PLAN: 1. Status post ileostomy. 2. Continue out of bed physical and occupational therapy, supportive care and likely be discharged within next 24 to 48 hours. Job ID: [id number]
[2018-11-21] MEDS: Sodium Chloride 0.9% 1,000 ML IV SCH ×2 (02:26→07:25)
[2018-11-21] MEDS: Acetaminophen 500 MG TAB PO SCH ×4 (05:05→23:30)
[2018-11-21] MEDS: metroNIDAZOLE 500 MG in Premix Bag 1 BAG IVPB SCH ×3 (05:05→20:05)
[2018-11-21] MEDS: Ibuprofen 600 MG TAB PO SCH ×4 (05:05→23:30)
[2018-11-21] MEDS: traMADol HCl 50 MG TAB PO SCH ×4 (05:06→23:30)
[2018-11-21] MEDS: Meropenem 2 GM, Admixture Fee 1 EACH in Sodium Chloride 0.9% 100 ML IVPB SCH ×2 (05:23→14:16)
--- NOTE | 2018-11-21 08:07 | PRG ---
DATE OF SERVICE: 11/21/2018 SUBJECTIVE: The patient is saying that his pain is a little worse because he is off the [employer]. He denies any nausea or vomiting. He does complain of some acid reflux. His ostomy is working well. He is tolerating full liquid diet well. He is ambulating well. OBJECTIVE: VITAL SIGNS: His temperature is 98, pulse 60, blood pressure 140/83. GENERAL: He looks good. ABDOMEN: Soft and nondistended. The incision looks healthy. The dressing was removed and redressed. His BIRD output is minimal. ASSESSMENT: Doing well. PLAN: Discontinue BIRD. Wean TPN. Home soon. Job ID: [id number]
[2018-11-21] MEDS: Enoxaparin Sodium 40 MG/0.4 ML SYRINGE SC SCH (08:50)
[2018-11-21] MEDS: Gabapentin 100 MG CAP PO SCH ×2 (08:50→20:04)
[2018-11-21] MEDS: traMADol HCl 50 MG TAB PO PRN ×3 (09:26→20:04)
[2018-11-21 09:31] LABS: Phosphorus 2.9 mg/dL (2.3-4.7)
[2018-11-21 09:35] LABS: ALT (SGPT) 85 U/L (8-55); AST (SGOT) 43 U/L (5-34); Albumin 3.5 g/dL (3.5-5.0); Alkaline Phosphatase 101 U/L (40-150); Anion Gap 11 mmol/L (10-20); BUN (Urea Nitrogen) 18 mg/dL (8.9-20.6); Bilirubin, Total 0.5 mg/dL (0.2-1.2); Calc. Creatinine Clearance 267 mL/min (70-130); Calcium 9.7 mg/dL (7.8-10.44); Carbon Dioxide 28 mmol/L (22-29); Chloride 101 mmol/L (98-107); Estimated GFR-MDRD Greater than 90; Globulin 2.7 g/dL (2.4-3.5); Glucose 98 mg/dL (70-105); Magnesium 2.4 mg/dL (1.6-2.6); Potassium 5.1 mmol/L (3.5-5.1); Protein, Total 6.2 g/dL (6.0-8.3); Sodium 135 mmol/L (136-145)
--- NOTE | 2018-11-21 14:13 | PDOC.HOSPP ---
- Subjective Subjective: Seen and examined. Continues to improve. Tolerating diet. Walking laps around unit. Having output from ostomy. Afebrile. Clinically improving. - Objective Vital Signs & Weight: Vital Signs (12 hours) Temp Pulse Resp BP Pulse Ox 11/21/18 11:28 98 F 74 16 149/99 H 97 11/21/18 08:50 97 11/21/18 07:00 98 F 61 20 133/84 97 11/21/18 03:50 98.0 F 60 16 140/83 99 Weight Admit Weight 273 lb 5 oz Weight 273 lb 5 oz I&O: 11/20/18 11/21/18 11/22/18 06:59 06:59 06:59 Intake Total 1430 2452 2892 Output Total 2630 2440 2125 Balance -1200 12 767 Result Diagrams: 11/20/18 12:51 11/21/18 08:36 Additional Labs: Accuchecks 11/21/18 11/21/18 11/20/18 11:35 05:07 23:27 POC Glucose 84 93 119 H 11/20/18 18:06 POC Glucose 94 ROS - Medication Medications: Active Medications Generic Name Dose Route Start Last Admin Trade Name Freq PRN Reason Stop Dose Admin Acetaminophen 1,000 mg 11/20/18 12:00 11/21/18 12:17 Tylenol PO 1,000 mg Q6HR DION Administration Cyclobenzaprine HCl 10 mg 11/20/18 11:58 11/20/18 17:51 Flexeril PO 10 mg TIDPRN PRN Administration Muscle Spasm Enoxaparin Sodium 40 mg 11/17/18 09:00 11/21/18 08:50 Lovenox SC 40 mg 0900 DION Administration Gabapentin 100 mg 11/20/18 21:00 11/21/18 08:50 Neurontin PO 100 mg BID DION Administration Sodium Acetate 40 meq/ Sodium 3,022.3159 mls @ 125.93 mls/hr 11/17/18 22:00 11/20/18 22:26 Chloride 30 meq/ Potassium IV 3,022.3159 mls Chloride 20 meq/ Potassium 2200 DION Administration Phosphate 30 mmol/ Calcium Chloride 10 meq/ Magnesium Sulfate 10 meq/ Multivitamins 10 ml/ Chromium/Copper/ Manganese/Seleni/Zn 5 ml/ Fat Emulsion Intravenous 250 ml/ Dextrose/Water/ Sterile Water/ Amino Acids Ciprofloxacin/Dextrose 400 mg/ 200 mls @ 200 mls/hr 11/19/18 21:00 11/21/18 08:50 Device IVPB 200 mls Q12HR DION Administration Metronidazole 500 mg/ Device 100 mls @ 100 mls/hr 11/19/18 12:00 11/21/18 12: 18 IVPB 100 mls 0400,1200,2000 DION Administration Ibuprofen 600 mg 11/20/18 12:00 11/21/18 12:17 Motrin PO 600 mg Q6HR DION Administration Pantoprazole Sodium 40 mg 11/21/18 09:00 11/21/18 08:50 Protonix PO 40 mg DAILY DION Administration Tramadol HCl 50 mg 11/20/18 12:00 11/21/18 12:18 Ultram PO 50 mg Q6HR DION Administration Tramadol HCl 50 mg 11/20/18 11:56 11/21/18 09:26 Ultram PO 50 mg Q4H PRN Administration Breakthrough Pain - Exam NAD, awake alert Eye: PERRL, anicteric sclera ENT: moist mucosa Neck: supple, symmetric, no thyromegaly Heart: RRR, no murmur, no gallops, no rubs, normal peripheral pulses Respiratory: CTAB, no wheezes, no rales Gastrointestinal: soft, non-tender, non-distended Gastrointestinal - other findings: BIRD drain in place with scant output. Ostomy in postition with output Skin: no rashes Neurological: CN's grossly intact, no weakness, no focal deficits Musculoskeletal: normal tone, normal strength Psychiatric: normal affect, normal behavior, A&O x 3 Hosp A/P (1) Hospital-acquired pneumonia Code(s): J18.9 - PNEUMONIA, UNSPECIFIED ORGANISM; Y95 - NOSOCOMIAL CONDITION Status: Acute (2) Perforated diverticulum Code(s): K57.80 - DVTRCLI OF INTEST, PART UNSP, W PERF AND ABSCESS W/O BLEED Status: Acute (3) Hypertension Code(s): I10 - ESSENTIAL (PRIMARY) HYPERTENSION Status: Chronic (4) Hypothyroidism Code(s): E03.9 - HYPOTHYROIDISM, UNSPECIFIED Status: Chronic - Plan Plan: Surgery following, recommendations appreciated Advancing diet per surgery, as katherin Having output from ostomy D/c TPN BIRD drain with minimal output Responding to ABX Doing well with incentive spirometry, Q1 hour while awake Continue protonix Pepcid - D/c Doing well with regard to his physical strength, walking several laps around the unit daily DVT PPX Anticipate home D/c in the next 24-48 hours if continues to improve
--- NOTE | 2018-11-21 16:58 | EKG ---
Test Reason : Blood Pressure : / mmHG Vent. Rate : 082 BPM Atrial Rate : 082 BPM P-R Int : 116 ms QRS Dur : 090 ms QT Int : 340 ms P-R-T Axes : 033 045 035 degrees QTc Int : 397 ms Normal sinus rhythm Normal ECG No previous ECGs available Confirmed by DANILO CHÁVEZ, DR. Jauregui ([id number]) on 11/21/2018 4:58:27 PM Referred By: MICHELLE Confirmed By:DR. Shania CARRASCO MD
[2018-11-22] MEDS: Acetaminophen 500 MG TAB PO SCH ×3 (05:11→17:50)
[2018-11-22] MEDS: traMADol HCl 50 MG TAB PO SCH ×3 (05:12→17:50)
[2018-11-22] MEDS: Ibuprofen 600 MG TAB PO SCH ×3 (05:12→17:51)
[2018-11-22] MEDS: metroNIDAZOLE 500 MG in Premix Bag 1 BAG IVPB SCH ×2 (05:12→11:26)
[2018-11-22] MEDS: Gabapentin 100 MG CAP PO SCH (08:44)
[2018-11-22] MEDS: traMADol HCl 50 MG TAB PO PRN ×2 (08:44→15:04)
[2018-11-22] MEDS: Enoxaparin Sodium 40 MG/0.4 ML SYRINGE SC SCH (08:45)
--- NOTE | 2018-11-22 12:46 | PRG ---
DATE OF SERVICE: 11/22/2018 SUBJECTIVE: The patient is reporting that he had some nausea yesterday. He is tolerating full liquids now. He was little worried about not having as much ostomy output today. OBJECTIVE: VITAL SIGNS: On examination, his temperature is 98.3, pulse 66, and blood pressure 137/85. GENERAL: He looks fine. GENITOURINARY: His urine output is good. He had 210 out his ostomy. There is gas in the ostomy bag. ABDOMEN: Obese, but soft and nondistended. The incisions are healing well. There is no evidence of infection. ASSESSMENT: I think he is doing fine. PLAN: To check a KUB. Make sure we do not see any significant intestinal distention. Job ID: [id number]
--- NOTE | 2018-11-22 13:21 | RAD ---
EXAM: Single view of the abdomen HISTORY: Abdominal distention COMPARISON: None FINDINGS: Single view of the abdomen shows a nonspecific, nonobstructive bowel gas pattern. Midline s kin francisco are seen. No suspicious calcifications are seen. The bones are unremarkable. IMPRESSION: Unremarkable exam
[2018-11-22 15:08] VITALS: BP 144/92; TEMP 97.8
--- NOTE | 2018-11-22 15:50 | PDOC.HOSPP ---
- Subjective Subjective: Seen and examined. Tolerating diet, continues to improve. Having output from ostomy. BIRD out. Walking without difficulties many laps around the unit. KUB negative. Only barrier to d/c would be to ensure that patient can get his antibiotics as he currently doesn't have insurance. Case management consult placed. - Objective Vital Signs & Weight: Vital Signs (12 hours) Temp Pulse Resp BP Pulse Ox 11/22/18 15:03 97.8 F 65 18 144/92 H 100 11/22/18 11:24 98.3 F 66 18 137/85 98 11/22/18 08:45 97 11/22/18 07:54 97.8 F 63 16 125/82 97 11/22/18 03:54 98.2 F 70 16 136/76 98 Weight Admit Weight 273 lb 5 oz Weight 273 lb 5 oz I&O: 11/21/18 11/22/18 11/23/18 06:59 06:59 06:59 Intake Total 2452 4692 Output Total 2440 5930 Balance 12 -1238 Result Diagrams: 11/20/18 12:51 11/21/18 08:36 Additional Labs: Accuchecks 11/22/18 11/22/18 11/21/18 05:42 00:07 18:28 POC Glucose 80 80 71 ROS - Medication Medications: Active Medications Generic Name Dose Route Start Last Admin Trade Name Freq PRN Reason Stop Dose Admin Acetaminophen 1,000 mg 11/20/18 12:00 11/22/18 11:26 Tylenol PO 1,000 mg Q6HR DION Administration Cyclobenzaprine HCl 10 mg 11/20/18 11:58 11/20/18 17:51 Flexeril PO 10 mg TIDPRN PRN Administration Muscle Spasm Enoxaparin Sodium 40 mg 11/17/18 09:00 11/22/18 08:45 Lovenox SC 40 mg 0900 DION Administration Gabapentin 100 mg 11/20/18 21:00 11/22/18 08:44 Neurontin PO 100 mg BID DION Administration Ciprofloxacin/Dextrose 400 mg/ 200 mls @ 200 mls/hr 11/19/18 21:00 11/22/18 08:45 Device IVPB 200 mls Q12HR DION Administration Metronidazole 500 mg/ Device 100 mls @ 100 mls/hr 11/19/18 12:00 11/22/18 11: 26 IVPB 100 mls 0400,1200,2000 DION Administration Ibuprofen 600 mg 11/20/18 12:00 11/22/18 11:26 Motrin PO 600 mg Q6HR DION Administration Ondansetron HCl 4 mg 11/16/18 09:54 11/21/18 20:04 Zofran IVP 4 mg Q6H PRN Administration Nausea/Vomiting Pantoprazole Sodium 40 mg 11/21/18 09:00 11/22/18 08:44 Protonix PO 40 mg DAILY DION Administration Tramadol HCl 50 mg 11/20/18 12:00 11/22/18 11:26 Ultram PO 50 mg Q6HR DION Administration Tramadol HCl 50 mg 11/20/18 11:56 11/22/18 15:04 Ultram PO 50 mg Q4H PRN Administration Breakthrough Pain - Exam NAD, awake alert Eye: PERRL, anicteric sclera ENT: normocephalic atraumatic Neck: supple, symmetric Heart: RRR, no murmur, no gallops Respiratory: CTAB, no wheezes, no rales Gastrointestinal: soft, non-tender, non-distended Gastrointestinal - other findings: Ostomy with output Extremities: no edema Skin: normal turgor, no rashes Neurological: CN's grossly intact, normal sensation to touch, no weakness, no focal deficits Musculoskeletal: generalized weakness Psychiatric: normal affect, A&O x 3 Hosp A/P (1) Hospital-acquired pneumonia Code(s): J18.9 - PNEUMONIA, UNSPECIFIED ORGANISM; Y95 - NOSOCOMIAL CONDITION Status: Acute (2) Perforated diverticulum Code(s): K57.80 - DVTRCLI OF INTEST, PART UNSP, W PERF AND ABSCESS W/O BLEED Status: Acute (3) Hypertension Code(s): I10 - ESSENTIAL (PRIMARY) HYPERTENSION Status: Chronic (4) Hypothyroidism Code(s): E03.9 - HYPOTHYROIDISM, UNSPECIFIED Status: Chronic - Plan Plan: D/c planning CM consult to see if there is anything that can be done to help the patient get his medications, specifically antibiotics fitness worker consult to help fill out Medicaid paperwork KUB neg Surgery following, recommendations appreciated Advancing diet per surgery, as katherin Having output from ostomy D/c TPN D/c BIRD drain Responding to ABX Doing well with incentive spirometry, Q1 hour while awake Continue protonix Doing well with regard to his physical strength, walking several laps around the unit daily DVT PPX Anticipate home D/c in the next 24-48 hours if continues to improve
--- NOTE | 2018-11-23 03:45 | DIS ---
DATE OF ADMISSION: 11/12/2018 DATE OF DISCHARGE: 11/22/2018 DISCHARGE DIAGNOSIS: Ruptured diverticulitis with peritonitis. PROCEDURES DURING ADMISSION: CT scan of abdomen, exploratory laparotomy, sigmoid colectomy, diverting ileostomy, central line placement. HOSPITAL COURSE: The patient was admitted, initially CT scan showed a small perforation. He was placed on IV antibiotics, seemed to be improving. Then suddenly one evening, on 3rd hospital day, had sudden severe abdominal pain, fever, peritonitis. He was taken to surgery, where he underwent a laparotomy, sigmoid colon resection with primary anastomosis and a diverting ileostomy. Postoperatively, he was treated with TPN. Bowel function returned. He was able to be advanced. He is tolerating soft diet. He is afebrile. Pain is controlled on p.o. medications. He is discharged home on hydrocodone, Zofran and doxycycline. He will follow up with me in 1 week for staple removal. Job ID: [id number]
== END 2018-11-22 18:28 | disposition home or self-care (01) | DRG 329 ==
LOC: ERS 19:29 → SURG A 20:00
PROVIDERS: ADMIT Surgery; ATTEND Surgery
PROC: 0DTN0ZZ Resection of Sigmoid Colon, Open Approach (ICD-10-PCS; principal; 2018-11-16)
PROC: 0D1B0Z4 Bypass Ileum to Cutaneous, Open Approach (ICD-10-PCS; 2018-11-16)
PROC: 02HV33Z Insertion of Infusion Device into Superior Vena Cava, Percutaneous Approach (ICD-10-PCS; 2018-11-16)
PROC: 0DJD8ZZ Inspection of Lower Intestinal Tract, Via Natural or Artificial Opening Endoscopic (ICD-10-PCS; 2018-11-16)
DX: K57.20 Diverticulitis of large intestine with perforation and abscess without bleeding (principal); K65.0 Generalized (acute) peritonitis; J18.9 Pneumonia, unspecified organism; E03.9 Hypothyroidism, unspecified; K21.9 Gastro-esophageal reflux disease without esophagitis; J45.909 Unspecified asthma, uncomplicated; F32.9 Major depressive disorder, single episode, unspecified; I51.7 Cardiomegaly; I10 Essential (primary) hypertension; Y95 Nosocomial condition; Z79.899 Other long term (current) drug therapy
CPT/HCPCS: 36415; 36416; 71045; 74018; 74177; 80048; 80053; 80061; 83735; 84100; 84134; 84439; 84443; 85025; 85610; 85730; 87070; 87205; 88307; 93005; 93010; 96374; A4217; J0131; J0670; J0744; J1100; J1170; J1650; J1885; J2001; J2185; J2250; J2270; J2405; J2543; J2550; J2704; J3010; J3370; J3475; J3490; J7050; Q0163; Q9967; S0028

== ENCOUNTER 2018-11-23 21:21 | Emergency (ER) | payer SELFPAY ==
[~2018-11-23 21:21] MED LIST: Iopamidol 370 76% 100 ML VIAL ONE
[2018-11-23] MEDS ORDERED: Ondansetron PF 4 MG/2 ML Vial ONE (22:37)
[2018-11-23] MEDS ORDERED: Morphine 4 MG/ML VIAL ONE (22:37)
[2018-11-23 22:39] LABS: #Basophils 0.1 thou/uL (0.0-0.2); #Eosinphils 0.3 thou/uL (0.0-0.7); #Lymphocytes 2.5 thou/uL (1.20-3.40); #Monocytes 0.6 thou/uL (0.11-0.59); #Neutrophils 7.3 thou/uL (1.40-6.50); %Basophils 0.5 % (0.0-1.0); %Eosinophils 3.1 % (0.0-10.0); %Lymphocytes 22.9 % (21.0-51.0); %Monocytes 5.7 % (0.0-10.0); %Neutrophils 67.8 % (42.0-75.0); Hemoglobin 14.4 g/dL (14.0-18.0); Mean Corpuscular HGB CONC 34.2 g/dL (32.0-36.0); Mean Corpuscular Hemoglobin 30.5 pg (27.0-31.0); Mean Platelet Volume 7.7 fL (7.4-10.4); Platelet Count 294 thou/uL (130-400); RBC Distribution Width 11.7 % (11.5-14.5); Red Blood Cell (RBC) Count 4.73 mill/uL (4.70-6.10); White Blood Cell (WBC) Count 10.7 thou/uL (4.8-10.8)
[2018-11-23 23:03] LABS: ALT (SGPT) 69 U/L (8-55); AST (SGOT) 33 U/L (5-34); Alkaline Phosphatase 92 U/L (40-150); Anion Gap 12 mmol/L (10-20); BUN (Urea Nitrogen) 14 mg/dL (8.9-20.6); Bilirubin, Total 0.5 mg/dL (0.2-1.2); Calc. Creatinine Clearance 0 mL/min (70-130); Calcium 9.5 mg/dL (7.8-10.44); Carbon Dioxide 26 mmol/L (22-29); Chloride 104 mmol/L (98-107); Estimated GFR-MDRD Greater than 90; Globulin 3.1 g/dL (2.4-3.5); Glucose 86 mg/dL (70-105); Lipase 53 U/L (8-78); Potassium 4.2 mmol/L (3.5-5.1); Protein, Total 7.1 g/dL (6.0-8.3); Sodium 138 mmol/L (136-145)
--- NOTE | 2018-11-23 23:12 | CT ---
CT Abdomen Pelvis W Con HISTORY: Abdominal pain. Status post sigmoid colectomy on 11/16/2018. Swelling around surgical site. COMPARISON: 11/15/2018 study. FINDINGS: There is linear atelectasis in the right lung base. The liver and spleen show no focal abnormalities. The pancreas and gallbladder regions are unremarkab le. Right and left adrenal glands and right and left kidneys are normal in size. There is no significant periaortic or mesenteric adenopathy. Midline francisco related to recent surgery noted and a double barrel ileostomy is noted where the ileo stomy limbs is sutured closed. There are some minimal dilatation of a short segment of ileum proximal to the ileostomy. The colon is completely decompressed. Postoperative changes are seen in th e region of the sigmoid colon. No abscess collection or free fluid noted within the of pelvis. Appendix region appears unremarkable. IMPRESSION: Postoperative changes of abdomen with a right-sided ileostomy. No signs of abscess format ion, obstruction or free fluid.
== END 2018-11-23 23:56 | disposition home or self-care (01) ==
LOC: ERS 21:21
DX: G89.18 Other acute postprocedural pain (principal); R10.9 Unspecified abdominal pain; I10 Essential (primary) hypertension; E03.9 Hypothyroidism, unspecified; K21.9 Gastro-esophageal reflux disease without esophagitis; Z87.891 Personal history of nicotine dependence; Z79.899 Other long term (current) drug therapy
CPT/HCPCS: 74177; 80053; 83690; 85025; 96374; 96375; J2270; J2405

== ENCOUNTER 2019-01-04 08:30 | Outpatient (CLI) | payer OTHER ==
--- NOTE | 2019-01-04 11:03 | RAD ---
Exam: Barium enema: Single contrast Gastrografin enema is performed. HISTORY: Perforated diverticulitis with anastomosis of the sigmoid colon. Right-sided ileostomy seen on KUB. Gastrografin contrast was introduced per rectum flowing through the sigmoid colon where there is note d to be an occasional diverticulum and some spasticity and irritability but no evidence for mass, stricture, or extravasation. Contrast media did fill: Into the cecum with reflux into a normal-appear ing terminal ileum. IMPRESSION: Unremarkable postoperative large bowel. Minimal sigmoid colon spasticity and irritability. No evidence for extravasation.
[2019-01-04] MEDS ORDERED: MD-Gastroview 120 ML BOT ONE (18:09)
== END 2019-01-04 08:31 | disposition home or self-care (01) ==
LOC: RAD 08:30
PROVIDERS: ATTEND Surgery
DX: K57.80 Diverticulitis of intestine, part unspecified, with perforation and abscess without bleeding (principal); K63.89 Other specified diseases of intestine
CPT/HCPCS: 74280; Q9963

== ENCOUNTER 2019-01-12 09:26 | Outpatient (CLI) | payer OTHER, SELFPAY ==
[2019-01-12 12:47] LABS: #Basophils 0.1 thou/uL (0.0-0.2); #Eosinphils 0.3 thou/uL (0.0-0.7); #Lymphocytes 2.2 thou/uL (1.20-3.40); #Monocytes 0.5 thou/uL (0.11-0.59); #Neutrophils 6.2 thou/uL (1.40-6.50); %Basophils 0.7 % (0.0-1.0); %Eosinophils 2.8 % (0.0-10.0); %Lymphocytes 23.7 % (21.0-51.0); %Monocytes 5.6 % (0.0-10.0); %Neutrophils 67.3 % (42.0-75.0); Hemoglobin 16.8 g/dL (14.0-18.0); Mean Corpuscular HGB CONC 35.5 g/dL (32.0-36.0); Mean Corpuscular Hemoglobin 31.5 pg (27.0-31.0); Mean Corpuscular Volume 88.7 fL (78.0-98.0); Mean Platelet Volume 7.5 fL (7.4-10.4); Platelet Count 260 thou/uL (130-400); RBC Distribution Width 12.3 % (11.5-14.5); Red Blood Cell (RBC) Count 5.34 mill/uL (4.70-6.10); White Blood Cell (WBC) Count 9.2 thou/uL (4.8-10.8)
[2019-01-12 13:10] LABS: ALT (SGPT) 22 U/L (8-55); AST (SGOT) 15 U/L (5-34); Albumin 4.6 g/dL (3.5-5.0); Alkaline Phosphatase 80 U/L (40-110); Anion Gap 14 mmol/L (10-20); BUN (Urea Nitrogen) 5 mg/dL (8.9-20.6); Bilirubin, Total 0.6 mg/dL (0.2-1.2); Calc. Creatinine Clearance 0 mL/min (70-130); Calcium 9.8 mg/dL (7.8-10.44); Carbon Dioxide 22 mmol/L (22-29); Chloride 107 mmol/L (98-107); Estimated GFR-MDRD Greater than 90; Globulin 2.9 g/dL (2.4-3.5); Glucose 85 mg/dL (70-105); Potassium 3.8 mmol/L (3.5-5.1); Protein, Total 7.5 g/dL (6.0-8.3); Sodium 139 mmol/L (136-145)
== END 2019-01-12 09:27 | disposition home or self-care (01) ==
LOC: LABBT 09:26
PROVIDERS: ATTEND Surgery
DX: Z01.812 Encounter for preprocedural laboratory examination (principal); K57.80 Diverticulitis of intestine, part unspecified, with perforation and abscess without bleeding
CPT/HCPCS: 80053; 85025

== ENCOUNTER 2019-01-12 11:00 | Inpatient (IN) | payer OTHER, SELFPAY ==
[2019-01-12 11:43] VITALS: BMI 36.2
[2019-01-16] MEDS ORDERED: Midazolam HCl 2 mg/2 ml Vial ONE ×2 (06:28→08:09)
[2019-01-16] MEDS ORDERED: Fentanyl 250 MCG/5 ML VIAL ONE (06:28)
[2019-01-16] MEDS ORDERED: cefOXitin 2 GM VIAL ONE (07:27)
[2019-01-16] MEDS ORDERED: Sodium Chloride 0.9% 100 ML ONE (07:27)
[2019-01-16] MEDS ORDERED: Fentanyl 100 MCG/2 ML VIAL ONE ×3 (08:09→10:33)
[2019-01-16] MEDS ORDERED: Promethazine HCl 25 MG/ML VIAL IM PRN ×3 (09:33→10:01)
[2019-01-16] MEDS ORDERED: hydrALAZINE 20 MG/ML VIAL SLOW IVP PRN (09:33)
[2019-01-16] MEDS ORDERED: Meperidine HCl/PF 25 MG/ML VIAL ONE (09:44)
[2019-01-16] MEDS ORDERED: Ondansetron HCl/PF 4 MG/2 ML Vial IVP PRN (09:45)
[2019-01-16] MEDS ORDERED: Promethazine HCl 25 MG/ML VIAL SLOW IVP PRN (09:45)
[2019-01-16] MEDS ORDERED: Zolpidem Tartrate 5 MG TAB PO PRN (10:01)
[2019-01-16] MEDS ORDERED: diphenhydrAMINE 50 MG/ML VIAL IM/IV PRN (10:01)
[2019-01-16] MEDS ORDERED: Naloxone HCl 0.4 mg/ml Vial IV PRN (10:01)
[2019-01-16] MEDS ORDERED: diphenhydrAMINE 25 MG CAP PO PRN (10:01)
[2019-01-16] MEDS ORDERED: Acetaminophen 1,000 MG in Premix Bag 1 BAG IVPB SCH (12:00)
[2019-01-16] MEDS: Acetaminophen 1,000 MG in Premix Bag 1 BAG IVPB SCH ×2 (12:33→17:38)
[2019-01-16] MEDS: Ketorolac Tromethamine 30 MG/ML VIAL IVP SCH ×2 (12:34→17:39)
[2019-01-16] MEDS ORDERED: Glycopyrrolate 0.2 MG/ML 5 ML SYRINGE ONE (13:25)
[2019-01-16] MEDS ORDERED: Rocuronium Bromide 10 MG/ML (10ML VIAL) ONE (13:25)
[2019-01-16] MEDS ORDERED: Lidocaine 1% PF 5 ML VIAL ONE (13:25)
[2019-01-16] MEDS ORDERED: PROPOFOL 200 MG/20 ML VIAL ONE (13:25)
[2019-01-16] MEDS ORDERED: Ondansetron PF 4 MG/2 ML Vial ONE (13:25)
--- NOTE | 2019-01-16 15:26 | OP ---
DATE OF PROCEDURE: 01/16/2019 PREOPERATIVE DIAGNOSIS: Unwanted ileostomy. PROCEDURE PERFORMED: Ileostomy closure. INDICATIONS: A 28-year-old male, who is 2 months status post emergency sigmoid colectomy for diverticular perforation. This was resected, closed, but a diverting ileostomy was created. He has had a barium enema that showed everything was patent without leak. FINDINGS: Healthy bowel, very vascular. DESCRIPTION OF PROCEDURE: After informed consent was obtained, the patient was taken to the operating room, given general endotracheal anesthesia, placed in the supine position. A pursestring of 0 silk was used around the ileostomy to temporarily close it. Then, his abdomen was prepped and draped in usual fashion. An elliptical incision was performed to excise the skin and ileostomy. Subcu divided sharply. The bowel was transected utilizing a 75 mm NETTIE to completely close it and get rid of the contaminated skin edges. Then, further dissection was performed. Both ends of the small bowel were identified. The ileum was divided utilizing a NETTIE proximally and distally. Then, the mesentery divided with LigaSure. Then, the bowel was occluded with a Vanessa bowel clamp proximally and distally. The staple lines excised and end-to-end anastomosis was performed utilizing a single layer of 3-0 Vicryl suture, posterior layer, then anterior layer. Then, the mesentery closed with interrupted [id number] of 3-0 Vicryl. This was irrigated. Then, the bowel was placed within the abdominal cavity and the fascia closed with interrupted [id number] of #1 PDS. The subcu thoroughly irrigated. Irrigation fluid removed. Subcu reapproximated with interrupted 3-0 Vicryl and the skin closed loosely with skin francisco. Jason were then inserted between francisco and a sterile bandage applied. The patient tolerated the procedure well, transferred to Recovery in good condition. Sponge and needle count verified correct x2. Job ID: [id number]
[2019-01-16] MEDS: cefOXitin 2 GM in Sodium Chloride 0.9% 100 ML IVPB SCH ×2 (15:48→22:42)
[2019-01-16] MEDS: Sodium Chloride 0.9% 1,000 ML IV SCH ×2 (15:48→18:40)
[2019-01-16] MEDS: Ondansetron PF 4 MG/2 ML Vial IVP PRN ×2 (15:57→22:42)
[2019-01-16] MEDS: Famotidine 20 MG TAB PO SCH (20:47)
[2019-01-16] MEDS: Famotidine/PF 20 mg/2ml Vial SLOW IVP SCH (20:47)
[2019-01-17] MEDS: Acetaminophen 1,000 MG in Premix Bag 1 BAG IVPB SCH ×2 (00:14→05:44)
[2019-01-17] MEDS: Ketorolac Tromethamine 30 MG/ML VIAL IVP SCH ×5 (00:14→23:02)
[2019-01-17] MEDS: Sodium Chloride 0.9% 1,000 ML IV SCH ×3 (01:18→18:47)
[2019-01-17] MEDS: fentaNYL Citrate/PF 2,000 MCG in Sodium Chloride 0.9% 60 ML IV PRN ×2 (01:21→18:46)
[2019-01-17 06:18] LABS: #Eosinphils 0.2 thou/uL (0.0-0.7); #Lymphocytes 1.8 thou/uL (1.20-3.40); #Monocytes 0.6 thou/uL (0.11-0.59); #Neutrophils 5.3 thou/uL (1.40-6.50); %Basophils 0.4 % (0.0-1.0); %Eosinophils 2.1 % (0.0-10.0); %Lymphocytes 22.6 % (21.0-51.0); %Monocytes 7.3 % (0.0-10.0); %Neutrophils 67.6 % (42.0-75.0); Hemoglobin 13.5 g/dL (14.0-18.0); Mean Corpuscular HGB CONC 34.1 g/dL (32.0-36.0); Mean Corpuscular Hemoglobin 30.8 pg (27.0-31.0); Mean Corpuscular Volume 90.3 fL (78.0-98.0); Mean Platelet Volume 7.5 fL (7.4-10.4); Platelet Count 197 thou/uL (130-400); Red Blood Cell (RBC) Count 4.37 mill/uL (4.70-6.10); White Blood Cell (WBC) Count 7.9 thou/uL (4.8-10.8)
[2019-01-17 06:30] LABS: Anion Gap 11 mmol/L (10-20); BUN (Urea Nitrogen) 5 mg/dL (8.9-20.6); Calc. Creatinine Clearance 201 mL/min (70-130); Calcium 8.6 mg/dL (7.8-10.44); Carbon Dioxide 27 mmol/L (22-29); Chloride 103 mmol/L (98-107); Estimated GFR-MDRD Greater than 90; Glucose 85 mg/dL (70-105); Potassium 4.2 mmol/L (3.5-5.1); Sodium 137 mmol/L (136-145)
--- NOTE | 2019-01-17 08:05 | PDOC.GSPN ---
Surgery Progress Note: Subj - Subjective Narrative: Patient is 28M who is 1 day status post ileostomy reversal. Patient says pain is better than yesterday but is still 7/10. Patient ambulating well. Patient complains of thirst and generalized weakness. Surgery Progress Note: Obj - Vital signs Vital signs: Vital Signs - Most Recent Temp Pulse Resp BP Pulse Ox 98 F 69 14 149/96 H 95 01/17/19 04:00 01/17/19 04:00 01/17/19 04:00 01/17/19 04:00 01/17/19 04:00 - Physical Exam General: no distress, well developed, well nourished ENT: normal mucosa Cardiovascular: regular rate and rhythm Respiratory: clear to auscultation, normal respiratory effort Abdomen: soft, decreased bowel sounds, tender Musculoskeletal: normal gait Wound: dressing clean,dry,intact Surgery Progress Note: Results - Labs Result Diagrams: 01/17/19 05:47 01/17/19 05:47 Lab results: Laboratory Results - last 24 hr 01/17/19 01/17/19 05:47 05:47 WBC 7.9 RBC 4.37 L Hgb 13.5 L Hct 39.5 L MCV 90.3 MCH 30.8 MCHC 34.1 RDW 12.0 Plt Count 197 MPV 7.5 Neutrophils % 67.6 Lymphocytes % 22.6 Monocytes % 7.3 Eosinophils % 2.1 Basophils % 0.4 Neutrophils # 5.3 Lymphocytes # 1.8 Monocytes # 0.6 H Eosinophils # 0.2 Basophils # 0.0 Sodium 137 Potassium 4.2 Chloride 103 Carbon Dioxide 27 Anion Gap 11 BUN 5 L Creatinine 0.92 Estimated GFR (MDRD) Greater than 90 Glucose 85 Calcium 8.6 Surgery Progress Note: A/P - Plan Plan: 1. 1 day status post ileostomy reversal -Continue to advance liquid diet as tolerated -Manage pain prn -Routine wound care at surgical incision site -Encourage ambulation as tolerated
[2019-01-17] MEDS ORDERED: FLU VACC QS2019-20(6MOS UP)/PF 60 MCG/0.5 ML SYRINGE IM ONE (09:00)
[2019-01-17] MEDS ORDERED: Enoxaparin Sodium 40 MG/0.4 ML SYRINGE SC SCH ×2 (09:00→10:00)
[2019-01-17] MEDS: Famotidine 20 MG TAB PO SCH ×2 (09:44→20:57)
[2019-01-17] MEDS: Famotidine/PF 20 mg/2ml Vial SLOW IVP SCH ×2 (09:51→20:58)
[2019-01-17] MEDS: Ondansetron PF 4 MG/2 ML Vial IVP PRN (12:08)
--- NOTE | 2019-01-17 13:45 | PRG ---
DATE OF SERVICE: 01/17/2019 SUBJECTIVE: The patient is now postop day one, status post closure of ileostomy, he is having occasional nausea, but he think it is related to the pain medicine. He has been tolerating ice chips and he is thirsty for some clear liquids. OBJECTIVE: GENERAL: On examination, there is a little bit of serosanguineous drainage. The wound looks good. No erythema. VITAL SIGNS: His temperature is 98, pulse 72, and blood pressure 137/81. ABDOMEN: Soft, nondistended, and nontender. LABORATORY DATA: H and H are 13 and 39 and white count is 7.9. Electrolytes are fine. ASSESSMENT: Doing well. PLAN: Clear liquid diet. Ambulation. Job ID: [id number]
[2019-01-18] MEDS: Sodium Chloride 0.9% 1,000 ML IV SCH ×3 (05:17→20:27)
[2019-01-18] MEDS: Ketorolac Tromethamine 30 MG/ML VIAL IVP SCH ×4 (05:18→23:12)
--- NOTE | 2019-01-18 07:11 | PDOC.GSPN ---
Surgery Progress Note: Subj - Subjective Narrative: Patient is a 28M who is post op day 2 status post ileostomy closure. Patient states he is doing well, and is tolerating the pain. He is tolerating liquid diet. He states that he feels gas forming in his abdomen, but he has not yet passed any gas. Surgery Progress Note: Obj - Vital signs Vital signs: Vital Signs - Most Recent Temp Pulse Resp BP Pulse Ox 98.7 F 89 18 147/92 H 96 01/18/19 04:30 01/18/19 04:30 01/18/19 04:30 01/18/19 04:30 01/18/19 04:30 - Physical Exam General: no distress, well developed, well nourished ENT: normal mucosa Cardiovascular: regular rate and rhythm Respiratory: clear to auscultation, normal respiratory effort Abdomen: positive bowel sounds, appropriately tender Wound: dressing clean,dry,intact Surgery Progress Note: Results - Labs Result Diagrams: 01/17/19 05:47 01/17/19 05:47 Surgery Progress Note: A/P - Plan Plan: Patient post op day 2 status post ileostomy closure. Doing well. -Continue with clear liquid diet -Encourage ambulation as tolerated -Manage pain as needed
[2019-01-18] MEDS: Famotidine/PF 20 mg/2ml Vial SLOW IVP SCH ×2 (08:24→21:39)
[2019-01-18] MEDS: Famotidine 20 MG TAB PO SCH ×2 (08:24→21:38)
[2019-01-18] MEDS: Enoxaparin Sodium 40 MG/0.4 ML SYRINGE SC SCH (08:24)
[2019-01-18] MEDS: fentaNYL Citrate/PF 2,000 MCG in Sodium Chloride 0.9% 60 ML IV PRN (12:38)
[2019-01-18] MEDS ORDERED: HYDROcodone/Acetaminophen 10/325 mg Tablet PO PRN (12:57)
[2019-01-18] MEDS ORDERED: DC PCA Order Set 1 EACH FS ONE (12:57)
[2019-01-18] MEDS: HYDROcodone/Acetaminophen 10/325 mg Tablet PO PRN ×3 (13:34→21:38)
--- NOTE | 2019-01-18 13:36 | PRG ---
DATE OF SERVICE: 01/18/2019 SUBJECTIVE: The patient is feeling much better. He started to pass gas. He is tolerating clear liquids well. His pain is improving. No fever or chills. OBJECTIVE: VITAL SIGNS: On exam, he is afebrile, blood pressure is 151/94, pulse 85. GENERAL: He looks good. He is ambulating well. ABDOMEN: The wound looks good. The barbara were completely removed. ASSESSMENT: Doing well. PLAN: Advance diet. Home soon. Job ID: [id number]
[2019-01-19] MEDS: HYDROcodone/Acetaminophen 10/325 mg Tablet PO PRN ×5 (05:27→23:42)
[2019-01-19] MEDS: Ketorolac Tromethamine 30 MG/ML VIAL IVP SCH ×2 (05:28→12:15)
[2019-01-19] MEDS: Sodium Chloride 0.9% 1,000 ML IV SCH ×3 (05:30→20:19)
--- NOTE | 2019-01-19 08:49 | PDOC.GSPN ---
Surgery Progress Note: Subj - Subjective Narrative: Patient is a 28M who is post op day 3 status post ileostomy reversal. Patient is ambulating well and has no complaints. He began to pass gas yesterday, but has not passed gas since yesterday afternoon. He is tolerating liquids well. He is tolerating pain well. Surgery Progress Note: Obj - Vital signs Vital signs: Vital Signs - Most Recent Temp Pulse Resp BP Pulse Ox 98.3 F 85 18 137/85 96 01/19/19 04:07 01/19/19 04:07 01/19/19 04:07 01/19/19 04:07 01/19/19 04:07 - Physical Exam General: no distress Abdomen: soft, non tender Wound: dressing clean,dry,intact Surgery Progress Note: Results - Labs Result Diagrams: 01/17/19 05:47 01/17/19 05:47 Surgery Progress Note: A/P - Plan Plan: Post op day 3 status post ileostomy reversal. Doing well. -Advance diet as tolerated -Manage pain prn -Continue to encourage ambulation as tolerated Addendum - Physician - Physician Attestation Date/Time: 01/19/19 0477 I personally performed or re-performed the physical examination and medical decision making. I have verified all student documentation or findings, including history, physical exam and/or medical decision making. Tolerating diet well. Wound clear, dressings changed. DC today. he will take milk of mag at home tomorrow if no bowel movment
[2019-01-19] MEDS: Famotidine 20 MG TAB PO SCH ×2 (09:08→20:16)
[2019-01-19] MEDS: Famotidine/PF 20 mg/2ml Vial SLOW IVP SCH ×2 (09:08→20:18)
[2019-01-19] MEDS: Enoxaparin Sodium 40 MG/0.4 ML SYRINGE SC SCH (09:50)
[2019-01-19] MEDS ORDERED: Milk Of Magnesia 30 ML UDCUP PO SCH ×2 (12:15→16:00)
--- NOTE | 2019-01-19 12:51 | DIS ---
DATE OF ADMISSION: 01/16/2019 DATE OF DISCHARGE: 01/19/2019 ADMITTING DIAGNOSES: 1. Ileostomy dysfunction. 2. Diverticulitis. DISCHARGE DIAGNOSES: 1. Ileostomy dysfunction. 2. Diverticulitis. PROCEDURE: Ileostomy reversal by Dr. Hale without complication. CONDITION ON DISCHARGE: Improved. STAFF: Navjot Hale MD HOSPITAL COURSE: The patient's diet is advanced from liquids. On postop day 3, he is tolerating the liquid diet without difficulty. He has not had a bowel movement, but he has no bloating or nausea. He is discharged home. He is able to shower at home, but he will keep a dressing over the wound and change it after shower. I recommended mostly casserole diet for the next few weeks and no roughage until followup. Job ID: [id number]
[2019-01-20] MEDS: HYDROcodone/Acetaminophen 10/325 mg Tablet PO PRN ×5 (04:28→20:10)
[2019-01-20] MEDS: Sodium Chloride 0.9% 1,000 ML IV SCH ×3 (04:38→23:54)
[2019-01-20] MEDS: Ondansetron PF 4 MG/2 ML Vial IVP PRN ×2 (05:29→16:45)
--- NOTE | 2019-01-20 07:56 | PDOC.GSPN ---
Surgery Progress Note: Subj - Subjective Narrative: Patient is 28M who is post op day 4 status post ileostomy reversal. Patient complains of diarrhea every 2 hours since yesterday evening and persistent nausea. Patient denies vomiting. Surgery Progress Note: Obj - Vital signs Vital signs: Vital Signs - Most Recent Temp Pulse Resp BP Pulse Ox 98.1 F 92 16 158/105 H 98 01/20/19 04:18 01/20/19 04:18 01/20/19 04:18 01/20/19 04:18 01/20/19 04:18 - Physical Exam General: no distress Abdomen: soft, non tender, positive bowel sounds Wound: dressing clean,dry,intact, healing well Surgery Progress Note: Results - Labs Result Diagrams: 01/17/19 05:47 01/17/19 05:47 Surgery Progress Note: A/P - Plan Plan: Post op day 4 status post ileostomy reversal -Consider discharge -Treat nausea and vomiting supportively with prn medications Addendum - Physician - Physician Attestation Date/Time: 01/20/19 1010 I personally performed or re-performed the physical examination and medical decision making. I have verified all student documentation or findings, including history, physical exam and/or medical decision making. More nausea now. Loose stools due to milk of mag. Plan keep today, DC tomorrow if nausea improved
[2019-01-20] MEDS: Famotidine/PF 20 mg/2ml Vial SLOW IVP SCH ×2 (10:27→20:12)
[2019-01-20] MEDS: Famotidine 20 MG TAB PO SCH ×2 (10:28→20:10)
[2019-01-20] MEDS: Enoxaparin Sodium 40 MG/0.4 ML SYRINGE SC SCH (10:31)
[2019-01-20] MEDS: Ondansetron ODT 4 MG TAB PO PRN (17:36)
[2019-01-21] MEDS: HYDROcodone/Acetaminophen 10/325 mg Tablet PO PRN ×2 (00:12→07:25)
[2019-01-21] MEDS: Ondansetron ODT 4 MG TAB PO PRN ×2 (00:12→07:25)
[2019-01-21 08:06] VITALS: BP 146/94; TEMP 98.3
[2019-01-21] MEDS: Sodium Chloride 0.9% 1,000 ML IV SCH (08:14)
[2019-01-21] MEDS: Famotidine/PF 20 mg/2ml Vial SLOW IVP SCH (08:14)
--- NOTE | 2019-01-21 09:29 | DIS ---
DATE OF ADMISSION: 01/16/2019 DATE OF DISCHARGE: 01/21/2019 ADMIT DIAGNOSES: Attention to ileostomy, history of perforated diverticulitis. DISCHARGE DIAGNOSES: Attention to ileostomy, history of perforated diverticulitis. PROCEDURES: Ileostomy reversal by Geoffrey without complication. CONDITION ON DISCHARGE: Improved. STAFF: Geoffrey. HOSPITAL COURSE: The patient's postop ileus slowly resolved. On the day of discharge, he is tolerating regular diet. He is having bowel function. His pain is controlled. He is discharged to home. He will follow up with Dr. Hale for staple removal in 7 to 10 days. Job ID: [id number]
[2019-01-21] MEDS: Enoxaparin Sodium 40 MG/0.4 ML SYRINGE SC SCH (09:48)
[2019-01-21] MEDS: Famotidine 20 MG TAB PO SCH (09:48)
[2019-01-21] MEDS ORDERED: FLU VACC QS2019-20(6MOS UP)/PF 60 MCG/0.5 ML SYRINGE IM ONE (10:00)
== END 2019-01-21 10:30 | disposition home or self-care (01) | DRG 330 ==
LOC: EEVIPCON 01-16 05:39 → SURG A 01-16 05:39
PROVIDERS: ADMIT Surgery; ATTEND Surgery
PROC: 0DBB0ZZ Excision of Ileum, Open Approach (ICD-10-PCS; principal; 2019-01-17)
PROC: 3E02340 Introduction of Influenza Vaccine into Muscle, Percutaneous Approach (ICD-10-PCS; 2019-01-17)
DX: K94.13 Enterostomy malfunction (principal); K56.7 Ileus, unspecified; J45.909 Unspecified asthma, uncomplicated; F32.9 Major depressive disorder, single episode, unspecified; E07.9 Disorder of thyroid, unspecified; Y83.2 Surgical operation with anastomosis, bypass or graft as the cause of abnormal reaction of the patient, or of later complication, without mention of misadventure at the time of the procedure; Z87.891 Personal history of nicotine dependence; Z23 Encounter for immunization; Z79.899 Other long term (current) drug therapy
CPT/HCPCS: 36415; 80048; 85025; 90471; 90686; G0008; J0131; J0694; J1650; J1885; J2001; J2175; J2250; J2405; J2550; J2704; J3010; J3490; Q0162; S0028